=== PATIENT | male | born 1965 | race Caucasian/White ===

== ENCOUNTER 2021-04-24 06:24 | Emergency (ER) | payer MEDICARE, MEDICAID, SELFPAY ==
--- NOTE | ~2021-04-24 | CT_ITS ---
EXAMINATION: CT ABDOMEN AND PELVIS WITH CONTRAST CLINICAL INFORMATION: 55-year-old male with right-sided abdominal/flank pain for 3 days. COMPARISON: CT abdomen pelvis June 28, 2013 TECHNIQUE: Multidetector volumetric images were obtained from the superior aspect of the liver through the pubic symphysis following administration 85 mL of Omnipaque 350 intravenous contrast. Sagittal and coronal reformatted images were obtained on the technologist's workstation. This CT examination was performed using dose optimization techniques as appropriate, variously including the following: *Automated exposure control *Adjustment of mA and/or kV according to patient size (this includes techniques or standardized protocols for targeted exams where dose is matched to indication/reason for exam; i.e. extremities or head) *Use of iterative reconstruction technique DLP: 678 mGy-cm FINDINGS: Visualized lung bases demonstrate mild dependent atelectasis. The liver demonstrates normal size, contour and attenuation. The gallbladder is normal in appearance. The pancreas, spleen and adrenal glands are unremarkable. Symmetrically enhancing kidneys. No hydronephrosis of either kidney. 1.3 cm right midpole cyst. A few other sub-5 mm renal hypodensities bilaterally are too small to accurately characterize. The stomach is decompressed. Normal caliber loops of small and large bowel. Unremarkable anastomotic suture line within the sigmoid colon. Mild colonic diverticulosis without CT evidence to suggest active diverticulitis. Normal caliber abdominal aorta. No retroperitoneal lymphadenopathy. The bladder is normal in appearance. The prostate gland is not enlarged. No gross free pelvic fluid. No inguinal lymphadenopathy. Mild degenerative changes of the spine. CT/CT abdomen pelvis w con IMPRESSION: 1. Mild colonic diverticulosis without CT evidence to suggest active diverticulitis. 2. Stable postsurgical changes of the sigmoid colon. 3. Small right renal cyst.
[2021-04-24 06:59] VITALS: BP 148/89; PULSE 61; RESP 17; TEMP 36.6; O2SAT 97; BMI 31.6
[2021-04-24 07:23] VITALS: BP 146/71; PULSE 60; RESP 16; O2SAT 98
[2021-04-24 08:00] LABS: Hemoglobin 13.9 g/dl (14.0-18.0); Imm Gran Abs Auto 0.01 X10*3/uL (0.00-0.03); Imm Gran Pct Auto 0.2 % (0.0-0.4); MANUAL DIFF FLAG SCAN; PLT CLUMP 1; Red Cell Distribution Width 12.2 % (11.0-16.0); SCAN SMEAR FLAG 1
[2021-04-24 08:02] LABS: Basophils Percent Auto 0.3 % (0-2); Eosinophils Absolute Auto 0.2 X10*3/uL (0.0-0.4); Eosinophils Percent Auto 3.5 % (0-4); Hematocrit 40.5 % (42-52); Lymphocytes Absolute Auto 1.7 X10*3/uL (1.2-4.9); Lymphocytes Percent Auto 27.8 % (20-40); Mean Corpuscular HGB Conc 34.3 g/dl (31.0-36.0); Mean Corpuscular Hemoglobin 30.8 pg (27.0-33.0); Mean Corpuscular Volume 89.8 fL (80-98); Monocytes Absolute Auto 0.4 X10*3/uL (0.1-1.2); Monocytes Percent Auto 6.5 % (2-11); Neutrophils Absolute Auto 3.7 X10*3/uL (2.0-8.3); Neutrophils Percent Auto 61.7 % (45-73); Red Blood Count 4.51 X10*6/uL (4.60-5.80)
[2021-04-24] MEDS: 0.9 % Sodium Chloride 1,000 ML 999 ML IV (08:10)
[2021-04-24 08:16] LABS: Glucose Urine UA NEG (NEG); Leukocyte Esterase Urine NEG (NEG); Nitrite Urine NEG (NEG); Specific Gravity - Urine 1.025 (1.005-1.025); Urine Blood NEG (NEG); Urine Ketones NEG (NEG); Urine Protein NEG (NEG-TRACE)
[2021-04-24 08:19] LABS: Platelet Count 159 X10*3/uL (160-400); SLIDE REVIEW VERIFIED
[2021-04-24 08:20] LABS: Appearance Urine CLEAR; Color Urine YELLOW
[2021-04-24] MEDS: Ketorolac Tromethamine 30 MG/ML VIAL IVPUSH (08:39)
[2021-04-24 08:56] LABS: COVID-19 Test Negative (Negative); IDNOW Serial# 9DD0AD1C
[2021-04-24 09:15] LABS: Alanine Aminotransferase 27 U/L (0-40); Albumin Level 3.9 g/dL (3.5-5.0); Alkaline Phosphatase 50 U/L (39-117); Anion Gap 14 (12-20); Aspartate Amino Transferase 22 U/L (5-37); Bilirubin Direct 0.2 mg/dL (0.0-0.5); Bilirubin Total 0.5 mg/dL (0.0-1.0); Blood Urea Nitrogen 16 mg/dL (9-16); Calcium 8.4 mg/dL (8.4-10.2); Carbon Dioxide 19 mmol/L (22-29); Chloride 111 mmol/L (96-108); Creatinine Clr Calc Pharmacy 108.5; Estimated Glomerular Filt Rate > 60; Glucose Random 111 mg/dL (60-115); Lipase 18 U/L (8-78); Magnesium 2.2 mg/dL (1.6-2.6); Potassium 4.5 mmol/L (3.3-5.1); Sodium 139 mmol/L (135-145); Total Protein 6.9 g/dL (6.5-8.0)
[2021-04-24 09:43] VITALS: BP 125/61; PULSE 66; RESP 16; O2SAT 97
--- NOTE | 2021-04-24 09:45 | ED.ABDPAIN ---
HPI - Abdominal Pain General Chief Complaint: Abdominal Pain Stated Complaint: ABD pain Time Seen by Provider: 04/24/21 08:22 Source: patient and family Mode of arrival: ambulatory Limitations: no limitations History of Present Illness HPI narrative: 55-year-old male with a past medical history of diverticulitis with history of sigmoid resection, colonic polyps, BPH, hypertension, asthma, anxiety, depression and restless leg syndrome presenting to the ED with complaints of right upper quadrant/ right flank pain/ right lower quadrant abdominal pain for the past 3 days worse today. denies any fevers, nausea /vomiting, chest pain, shortness of breath, cough, back pain, dysuria, hematuria, abnormal penile discharge, diarrhea, constipation, Black or bloody stools or any other symptoms complaints or concerns at this time. MD elicited complaint: abdominal pain Pertinent past history: diverticulitis Onset (ago): day(s) ( 3 days worse today) Pain Consistency: constant Location: RUQ, RLQ and R flank Severity: moderate Quality: burning Radiation: none Migration to: no migration Exacerbating factors: nothing Relieving factors: nothing Associated symptoms: denies other symptoms Related Data Previous Rx's Medication Instructions Recorded amoxicillin-pot clavulanate 1 tab PO BID 10 Days #20 tab 04/24/21 [Augmentin] Allergies Allergy/AdvReac Type Severity Reaction Status Date / Time banana [Banana] Allergy Mild ITCHING Verified 04/24/21 08:11 peach [[place]] Allergy Mild ITCHING Verified 04/24/21 08:11 strawberry [[place]] Allergy Mild ITCHING Verified 04/24/21 08:11 apple [Apple] Allergy Unknown ITCHING Verified 04/24/21 08:11 jeffers Allergy Unknown ITCHING Verified 04/24/21 08:11 pollen extracts [POLLEN] Allergy Unknown RED ITCHY Verified 04/24/21 08:11 EYES tomato [TOMATO] Allergy Unknown ITCHING Verified 04/24/21 08:11 bananas Allergy Unknown itchy Uncoded 04/24/21 08:11 throat cherries Allergy Unknown itchy Uncoded 04/24/21 08:11 throat environmental Allergy Unknown Unknown Uncoded 04/24/21 08:11 strawberries Allergy Unknown itchy Uncoded 04/24/21 08:11 throat tomatoes Allergy Unknown itchy Uncoded 04/24/21 08:11 throat Review of Systems Review of Systems Constitutional : No Weight loss, No Fever, No Chills, No Night Sweats, No Fatigue, NoMalaise ENT/Mouth: No ear pain, No sore throat, No Difficulty swallowing Cardiovascular : No Chest Pain, No SOB, No Dyspnea on Exertion, No Orthopnea, NoEdema, No Palpitations Respiratory : No Cough, No Sputum, No Wheezing, No Dyspnea Gastrointestinal : positive abdominal pain, No Nausea, No Vomiting, No Diarrhea, No blood streaked emesis, No coffee-ground emesis, No gross hematemesis, No blood streak stool, No gross hematochezia, No Melena Genitourinary : No irregular bleeding, No Dysuria, No Urinary Frequency, No Hematuria,No Urinary Incontinence, No Urgency, No Flank Pain Musculoskeletal : No joint pain, No Myalgias, No Joint Swelling Skin : No Skin Lesions, No rash Neuro : No Weakness, No Numbness, No Paresthesias, No Loss of Consciousness, NoDizziness, No Headache Psych : No Social Issues, Heme/Lymph: No Bruising, No Bleeding,No Lymphadenopathy Endocrine : No Polyuria, No Polydipsia, No Temperature Intolerance Yes all other systems are reviewed and are negative Physical Exam Vital Signs: Vital Signs: Last Vital Signs Temp 97.9 F 04/24/21 06:59 Pulse 66 04/24/21 09:43 Resp 16 04/24/21 09:43 BP 125/61 04/24/21 09:43 Pulse Ox 97 04/24/21 09:43 Body Mass Index 31.6 vital signs have been reviewed as normal and appeared to be correct. Blood pressure hypertensive 148/89. Heart rate normal. Respiration rate normal. Temperature normal. Oxygen saturation normal. Appearance: Alert. Oriented X3. No acute distress. Head: Normal external exam. Normocephalic. Eyes: PERRLA. EOMI. Conjunctiva and sclera normal. Eyelids normal. ENT: Pharynx normal. Uvula midline. Moist mucous membranes. Neck: Normal inspection. Neck supple. FROM. No adenopathy. No meningeal signs. CVS: Normal heart rate and rhythm. Heart sound normal. No murmurs noted. Pulses normal throughout. Respiratory: No respiratory distress. Painless inspiration. Breath sounds normal. No wheezes/rales/rhonchi noted. Chest nontender. No accessory muscle usage noted or decreased air movement noted. Abdomen: Soft and mild tenderness to palpation to right upper quadrant/ right flank /right lower quadrant. Nondistended. No guarding. No rigidity. Bowel sounds normal in all 4 quadrants. No distention noted. No organomegaly noted. No visible injury noted. No rebound tenderness. Negative Rovsing sign. Negative obturator's sign. Negative psoas sign. Negative Brown sign. Back: No CVA tenderness. Full range of motion noted. Skin: Skin warm and dry. Normal skin color. Normal skin turgor. No rashes/lesions/lacerations noted. Extremities: Extremities exhibit normal range of motion. Extremities nontender. Neuro: Oriented X 3. No motor deficit. No sensory deficit. Reflexes normal. Normal steady gait. Course Course Course Narrative: 8:25am - 47-year-old male with a past medical history of asthma, migraine headaches, anxiety disorder and kidney stones presenting to the ED with complaints of nasal congestion, runny nose, sore throat and productive cough with white-colored sputum for the past 2 days worse today. Plan: Labs, COVID swab, UA, CT scan abdomen pelvis with IV contrast provide a L of IV fluids and 30 mg of IV Toradol then re-evaluate. Reevaluation(s) Reevaluation #1: - labs return and patient mild anemia otherwise all other labs are within normal limits. UA within normal limits no evidence of UTI. COVID negative. CT scan abdomen and pelvis revealed mild colonic diverticulosis without CT evidence to suggest active diverticulitis. Also noted small right renal cyst. Normal appearing appendix. Therefore will DC home with antibiotics and symptomatic treatment instructions to follow-up with optometric technologist. Patient understands agrees with this plan. Time: 10:57 MDM - Abdominal Pain Medical Records Attestation: I reviewed the patient's medical records. Lab Data Attestation: I reviewed the patient's lab results. Result diagrams: 04/24/21 07:54 04/24/21 08:35 Labs: Lab Results 04/24/21 04/24/21 04/24/21 Range/Units 07:54 08:11 08:32 WBC 6.0 (4.8-10.8) X10*3/uL RBC 4.51 L (4.60-5.80) X10*6/uL Hgb 13.9 L (14.0-18.0) g/dl Hct 40.5 L (42-52) % MCV 89.8 (80-98) fL MCH 30.8 (27.0-33.0) pg MCHC 34.3 (31.0-36.0) g/dl RDW 12.2 (11.0-16.0) % Plt Count 159 L (160-400) X10*3/uL MPV Not Reportable Immature Gran % (Auto) 0.2 (0.0-0.4) % Neut % (Auto) 61.7 (45-73) % Lymph % (Auto) 27.8 (20-40) % [place] % (Auto) 6.5 (2-11) % Eos % (Auto) 3.5 (0-4) % Baso % (Auto) 0.3 (0-2) % Lymph # (Auto) 1.7 (1.2-4.9) X10*3/uL [place] # (Auto) 0.4 (0.1-1.2) X10*3/uL Eos # (Auto) 0.2 (0.0-0.4) X10*3/uL Baso # (Auto) 0.0 (0.0-0.2) X10*3/uL Abs Immat Gran (auto) 0.01 (0.00-0.03) X10*3/uL Absolute Neuts (auto) 3.7 (2.0-8.3) X10*3/uL Absolute Nucleated RBC 0.000 (0.0-0.012) X10*3/uL Nucleated RBC % (auto) 0.0 (0.0-0.2) /100WBC Smear Tech's Comments VERIFIED Sodium (135-145) mmol/L Potassium (3.3-5.1) mmol/L Chloride (96-108) mmol/L Carbon Dioxide (22-29) mmol/L Anion Gap (12-20) BUN (9-16) mg/dL Creatinine (0.5-1.4) mg/dL Estim Creat Clear Calc Estimated GFR Random Glucose (60-115) mg/dL Calcium (8.4-10.2) mg/dL Magnesium (1.6-2.6) mg/dL Total Bilirubin (0.0-1.0) mg/dL Direct Bilirubin (0.0-0.5) mg/dL AST (5-37) U/L ALT (0-40) U/L Alkaline Phosphatase (39-117) U/L Total Protein (6.5-8.0) g/dL Albumin (3.5-5.0) g/dL Lipase (8-78) U/L Urine Color YELLOW Urine Appearance CLEAR Urine pH 6.0 (5.0-8.0) Ur Specific [place] 1.025 (1.005-1.025) Urine Protein NEG (NEG-TRACE) MG/DL Urine Glucose (UA) NEG (NEG) MG/DL Urine Ketones NEG (NEG) MG/DL Urine Blood NEG (NEG) Urine Nitrite NEG (NEG) Ur Leukocyte Esterase NEG (NEG) COVID-19 (ACACIA) Negative (Negative) COVID-19 Clin Com See Note 04/24/21 Range/Units 08:35 WBC (4.8-10.8) X10*3/uL RBC (4.60-5.80) X10*6/uL Hgb (14.0-18.0) g/dl Hct (42-52) % MCV (80-98) fL MCH (27.0-33.0) pg MCHC (31.0-36.0) g/dl RDW (11.0-16.0) % Plt Count (160-400) X10*3/uL MPV Immature Gran % (Auto) (0.0-0.4) % Neut % (Auto) (45-73) % Lymph % (Auto) (20-40) % [place] % (Auto) (2-11) % Eos % (Auto) (0-4) % Baso % (Auto) (0-2) % Lymph # (Auto) (1.2-4.9) X10*3/uL [place] # (Auto) (0.1-1.2) X10*3/uL Eos # (Auto) (0.0-0.4) X10*3/uL Baso # (Auto) (0.0-0.2) X10*3/uL Abs Immat Gran (auto) (0.00-0.03) X10*3/uL Absolute Neuts (auto) (2.0-8.3) X10*3/uL Absolute Nucleated RBC (0.0-0.012) X10*3/uL Nucleated RBC % (auto) (0.0-0.2) /100WBC Smear Tech's Comments Sodium 139 (135-145) mmol/L Potassium 4.5 (3.3-5.1) mmol/L Chloride 111 H (96-108) mmol/L Carbon Dioxide 19 L (22-29) mmol/L Anion Gap 14 (12-20) BUN 16 (9-16) mg/dL Creatinine 0.82 (0.5-1.4) mg/dL Estim Creat Clear Calc 108.5 Estimated GFR > 60 Random Glucose 111 (60-115) mg/dL Calcium 8.4 (8.4-10.2) mg/dL Magnesium 2.2 (1.6-2.6) mg/dL Total Bilirubin 0.5 (0.0-1.0) mg/dL Direct Bilirubin 0.2 (0.0-0.5) mg/dL AST 22 (5-37) U/L ALT 27 (0-40) U/L Alkaline Phosphatase 50 (39-117) U/L Total Protein 6.9 (6.5-8.0) g/dL Albumin 3.9 (3.5-5.0) g/dL Lipase 18 (8-78) U/L Urine Color Urine Appearance Urine pH (5.0-8.0) Ur Specific [place] (1.005-1.025) Urine Protein (NEG-TRACE) MG/DL Urine Glucose (UA) (NEG) MG/DL Urine Ketones (NEG) MG/DL Urine Blood (NEG) Urine Nitrite (NEG) Ur Leukocyte Esterase (NEG) COVID-19 (ACACIA) (Negative) COVID-19 Clin Com Imaging Data CT scan abdomen pelvis with IV contrast: Attestation: I personally reviewed and interpreted this imaging study as follows: Radiologist's impression: FINDINGS: Visualized lung bases demonstrate mild dependent atelectasis. The liver demonstrates normal size, contour and attenuation. The gallbladder is normal in appearance. The pancreas, spleen and adrenal glands are unremarkable. Symmetrically enhancing kidneys. No hydronephrosis of either kidney. 1.3 cm right midpole cyst. A few other sub-5 mm renal hypodensities bilaterally are too small to accurately characterize. The stomach is decompressed. Normal caliber loops of small and large bowel. Unremarkable anastomotic suture line within the sigmoid colon. Mild colonic diverticulosis without CT evidence to suggest active diverticulitis. Normal caliber abdominal aorta. No retroperitoneal lymphadenopathy. The bladder is normal in appearance. The prostate gland is not enlarged. No gross free pelvic fluid. No inguinal lymphadenopathy. Mild degenerative changes of the spine. CT/CT abdomen pelvis w con IMPRESSION: 1. Mild colonic diverticulosis without CT evidence to suggest active diverticulitis. 2. Stable postsurgical changes of the sigmoid colon. 3. Small right renal cyst. The appendix is normal in appearance. Addendum Dictated By:INÉS HALL MDAddendum Signed By:<Electronically signed by INÉS HALL MD in [place]> Discharge Plan Discharge Clinical Impression: Diverticulosis, Benign cyst of right kidney Patient Disposition: Home, Self-Care Instructions: Diverticulosis (ED), Kidney Cyst (ED) Prescriptions: New amoxicillin-pot clavulanate [Augmentin] 875-125 mg tablet 1 tab PO BID 10 Days Qty: 20 RF: 0 Referrals: Boris Erazo MD [Physician] - 2 days Aretha Cabrera MD [Primary Care Provider] - 2 days Young Azar MD [Physician] - 2 days ( renal cyst) Print Language: [place] [facility] Past Medical History Attestation statement: The following information was validated with the patient. Medical History (Updated 04/24/21 @ 10:59 by MIGUEL ANGEL Ray) Colitis Hypertension Surgical History (Updated 04/24/21 @ 09:48 by MIGUEL ANGEL Ray) H/O colonoscopy with polypectomy History of colon surgery History of prostate surgery Previous back surgery Social History Social History Patient Tobacco Use Status: Never used Tobacco Use of substances other than those prescribed or required for medical reasons: No Advance Directives: No Advance Directives Information Provided: No
[2021-04-24] MEDS: iohexoL 350 MG/ML 100 ML INFUS..BTL IV (09:57)
--- NOTE | 2021-04-24 10:20 | PC.NURSE ---
pt reporting significant improvement in pain. continues to deny n/v/d. vs wnl. waiting on ct results.
== END 2021-04-24 11:19 | disposition home or self-care (01) ==
PROVIDERS: Physician Assistant Medical; Emergency Provider Emergency Medicine Emergency Medical Services; PCP Student in an Organized Health Care Education/Training Program
DX: K57.30 Diverticulosis of large intestine without perforation or abscess without bleeding (principal); N28.1 Cyst of kidney, acquired; D64.9 Anemia, unspecified; I10 Essential (primary) hypertension; R05 Cough; Z20.822 Contact with and (suspected) exposure to COVID-19
CPT/HCPCS: 36415; 74177; 80048; 80076; 81003; 83690; 83735; 85025; 87635; 96361; 96374; 99284; 99285; J1885; Q9967

== ENCOUNTER 2021-06-17 12:18 | Outpatient (REF) | payer MEDICARE, MEDICAID, SELFPAY ==
--- NOTE | ~2021-06-17 | XR_ITS ---
EXAMINATION: CERVICAL SPINE 3 VIEWS CLINICAL INFORMATION: Dorsalgia. COMPARISON: Radiographs dated 10/10/2009. TECHNIQUE: Frontal, and odontoid, bilateral oblique and lateral views of the cervical spine are obtained. FINDINGS: Vertebral body heights and alignment are normal. There is very mild disc space narrowing at C5-C6 and C6-C7. No acute fracture or spondylolisthesis is seen. There is multi-level spondylosis, most pronounced at C5-C6 and C6-C7. The posterior elements are intact. There is mild bilateral foraminal narrowing at C5-C6, and mild left neural foraminal narrowing is seen at C6-C7. The dens is intact. There is no prevertebral soft tissue swelling. XR/XR cervical spine min 6V IMPRESSION: 1. There is mild degenerative disc disease at C5-C6 and C6-C7. 2. There is multi-level cervical spondylosis, most pronounced at C5-C6 and C6-C7. 3. There is mild bilateral foraminal narrowing at C5-C6, and mild left neural foraminal narrowing is seen at C6-C7.
--- NOTE | ~2021-06-17 | XR_ITS ---
EXAMINATION: XR THORACIC SPINE CLINICAL INFORMATION: Back pain. COMPARISON: Radiographs dated 10/10/2009. TECHNIQUE: Frontal, lateral and swimmer's views of the thoracic spine were obtained. FINDINGS: Vertebral body heights are normal. There is a slight thoracic dextroscoliosis, which may be positional. No acute fracture or spondylolisthesis is seen. The disc spaces are well-maintained. There is multi-level moderate mid to lower thoracic spondylosis. The posterior elements are intact. The soft tissue planes are unremarkable. XR/XR thoracic spine 3V IMPRESSION: 1. . No acute fracture or spondylolisthesis is seen. 2. The disc spaces are well-maintained. 3. There is multi-level moderate mid to lower thoracic spondylosis. 4. A slight thoracic dextroscoliosis is seen, possibly positional.
== END 2021-06-17 12:19 | disposition home or self-care (01) ==
LOC: HO.XRAY 12:18
PROVIDERS: PCP Student in an Organized Health Care Education/Training Program; Visit Provider Emergency Medicine
DX: M54.2 Cervicalgia (principal); M54.9 Dorsalgia, unspecified
CPT/HCPCS: 72052; 72072

== ENCOUNTER 2021-12-30 17:45 | Emergency (ER) | payer MEDICARE, MEDICAID, SELFPAY ==
--- NOTE | ~2021-12-30 | CT_ITS ---
EXAMINATION: CT ABDOMEN AND PELVIS WITH CONTRAST CLINICAL INFORMATION: Diffuse abdominal pain most marked in the left lower quadrant COMPARISON: CT abdomen pelvis 04/24/[address] abdomen pelvis 02/12/2013 (report only) TECHNIQUE: Multidetector volumetric images were obtained from the superior aspect of the liver through the pubic symphysis following administration 85 mL of Omnipaque 350 intravenous contrast. Sagittal and coronal reformatted images were obtained on the technologist's workstation. Oral contrast: No This CT examination was performed using dose optimization techniques as appropriate, variously including the following: *Automated exposure control *Adjustment of mA and/or kV according to patient size (this includes techniques or standardized protocols for targeted exams where dose is matched to indication/reason for exam; i.e. extremities or head) *Use of iterative reconstruction technique DLP: 644 mGy-cm FINDINGS: LUNG BASES: The visualized lung bases are unremarkable. LIVER, GALLBLADDER, AND BILIARY TREE: The liver is normal in size, shape, and attenuation. No focal hepatic lesion or biliary ductal dilatation is present. The gallbladder is unremarkable with no evidence of radiopaque gallstones, gallbladder wall thickening, or obvious pericholecystic inflammatory changes. PANCREAS: Unremarkable. SPLEEN: Unremarkable. ADRENAL GLANDS: Unremarkable. KIDNEYS AND URETERS: The kidneys are normal in size, shape, and attenuation. A 1.5 cm right parapelvic cyst is present. This needs no further imaging or follow-up. No solid renal masses are seen. No hydronephrosis, hydroureter, or calculi seen. No perinephric stranding. BLADDER: Unremarkable. GASTROINTESTINAL TRACT: A rectal anastomosis is seen without obstruction. Severe colonic diverticulitis was noted at this location prior on the 2012 study and this is probably the segment that was resected. Scattered colonic diverticula are present without evidence of diverticulitis at this time. The small and large bowel are otherwise unremarkable. The appendix is unremarkable. ABDOMINAL WALL: No significant hernia is appreciated. LYMPH NODES: No retroperitoneal lymphadenopathy. VASCULAR: Unremarkable. PELVIC VISCERA: Prostate and seminal vesicles are unremarkable. OSSEOUS STRUCTURES: Unremarkable. CT/CT abdomen pelvis w con IMPRESSION: No significant abnormality. Again seen is colonic diverticulosis without diverticulitis and a widely patent rectal anastomosis. Fleischner guidelines were followed.
[2021-12-30 18:26] VITALS: BP 142/80; PULSE 59; RESP 18; TEMP 37.1; O2SAT 98; BMI 31.8
[2021-12-30 20:28] LABS: MANUAL DIFF FLAG NO
[2021-12-30 20:29] LABS: Basophils Percent Auto 0.3 % (0-2); Eosinophils Absolute Auto 0.1 X10*3/uL (0.0-0.4); Eosinophils Percent Auto 1.3 % (0-4); Hematocrit 42.7 % (42.0-52.0); Hemoglobin 14.9 g/dl (14.0-18.0); Imm Gran Abs Auto 0.01 X10*3/uL (0.00-0.03); Imm Gran Pct Auto 0.2 % (0.0-0.4); Lymphocytes Absolute Auto 1.8 X10*3/uL (1.2-4.9); Lymphocytes Percent Auto 27.5 % (20-40); Mean Corpuscular HGB Conc 34.9 g/dl (31.0-36.0); Mean Corpuscular Hemoglobin 30.5 pg (27.0-33.0); Mean Corpuscular Volume 87.3 fL (80.0-98.0); Mean Platelet Volume 9.4 fL (9.4-12.4); Monocytes Absolute Auto 0.8 X10*3/uL (0.1-1.2); Monocytes Percent Auto 12.1 % (2-11); Neutrophils Absolute Auto 3.7 x10*3/uL (2.0-8.3); Neutrophils Percent Auto 58.6 % (45-73); Platelet Count 242 X10*3/uL (160-400); Red Blood Count 4.89 X10*6/uL (4.60-5.80); Red Cell Distribution Width 12.1 % (11.0-16.0); White Blood Count 6.4 X10*3/uL (4.8-10.8)
[2021-12-30 20:51] LABS: Alanine Aminotransferase 24 U/L (0-40); Albumin Level 4.4 g/dL (3.5-5.0); Alkaline Phosphatase 53 U/L (39-117); Anion Gap 17 (12-20); Aspartate Amino Transferase 23 U/L (5-37); Bilirubin Total 0.7 mg/dL (0.0-1.0); Blood Urea Nitrogen 14 mg/dL (9-16); Calcium 9.1 mg/dL (8.4-10.2); Carbon Dioxide 21 mmol/L (22-29); Chloride 102 mmol/L (96-108); Creatinine Clr Calc Pharmacy 101.5; Estimated Glomerular Filt Rate > 60; Glucose Random 108 mg/dL (60-115); Potassium 3.7 mmol/L (3.3-5.1); Sodium 136 mmol/L (135-145); Total Protein 7.6 g/dL (6.5-8.0)
[2021-12-30 21:42] VITALS: BP 139/82; PULSE 60; RESP 18; TEMP 36.9; O2SAT 98
[2021-12-30] MEDS: Ketorolac Tromethamine 15 MG/ML VIAL 30 MG IVPUSH (22:45)
[2021-12-30 23:13] LABS: Lipase 20 U/L (8-78)
[2021-12-30] MEDS: iohexoL 350 MG/ML 100 ML INFUS..BTL 85 ML IV (23:25)
--- NOTE | 2021-12-30 23:32 | ED_ITS ---
HPI - Abdominal Pain General Chief Complaint: Abdominal Pain Stated Complaint: abd pain Time Seen by Provider: 12/30/21 21:56 Source: patient Mode of arrival: ambulatory Limitations: no limitations History of Present Illness HPI narrative: This is a 56-year-old male past medical history diverticulitis, hypertension, restless legs syndrome, anxiety, depression presenting to the emergency department with complaints of diffuse abdominal pain with diarrhea x4 days. Patient tells me that the abdominal pain is severe in nature, crampy, at times stabbing. He tells me that the pain is throughout however worse in the left upper/lower quadrant. Patient tells me this is what it felt like when he had diverticulitis. He rates it a /10. He also reports associated chills. He tells me he has not been able to eat or drink as much as usual and when he does eat and drink is been all clear liquids. He denies fevers, chest pain, shortness of breath, nausea, vomiting, dizziness, headache. Patient denies recent sick contacts. MD elicited complaint: abdominal pain Pertinent past history: none Onset (ago): day(s) (4) Pain Consistency: constant Location: diffuse Severity: severe Pain scale (0-10): 10 Quality: cramping and stabbing Radiation: none Migration to: no migration Exacerbating factors: nothing Relieving factors: nothing Associated symptoms: denies other symptoms Related Data Previous Rx's Medication Instructions Recorded amoxicillin 875 mg-potassium 1 tab PO BID 10 Days #20 tab 04/24/21 clavulanate 125 mg tablet (Augmentin) ondansetron 4 mg disintegrating 4 mg PO ONCE PRN #10 tab 12/31/21 tablet Allergies Allergy/AdvReac Type Severity Reaction Status Date / Time banana [Banana] Allergy Mild ITCHING Verified 04/24/21 08:11 peach [[place]] Allergy Mild ITCHING Verified 04/24/21 08:11 strawberry [[place]] Allergy Mild ITCHING Verified 04/24/21 08:11 apple [Apple] Allergy Unknown ITCHING Verified 04/24/21 08:11 jeffers Allergy Unknown ITCHING Verified 04/24/21 08:11 pollen extracts [POLLEN] Allergy Unknown RED ITCHY Verified 04/24/21 08:11 EYES tomato [TOMATO] Allergy Unknown ITCHING Verified 04/24/21 08:11 avocado Allergy Itching Verified 12/30/21 18:26 bananas Allergy Unknown itchy Uncoded 04/24/21 08:11 throat cherries Allergy Unknown itchy Uncoded 04/24/21 08:11 throat environmental Allergy Unknown Unknown Uncoded 04/24/21 08:11 strawberries Allergy Unknown itchy Uncoded 04/24/21 08:11 throat tomatoes Allergy Unknown itchy Uncoded 04/24/21 08:11 throat Review of Systems Review of Systems Constitutional : No Weight loss, No Fever, No Chills, No Fatigue, No Malaise ENT/Mouth : No sore throat, No Rhinorrhea Eyes: No Eye Pain, No Swelling, No Redness Cardiovascular : No Chest Pain, No SOB, No Dyspnea on Exertion, No Orthopnea, No Edema, No Palpitations Respiratory : No Cough, No Sputum, No Wheezing Gastrointestinal : No Nausea, No Vomiting, + Diarrhea, No Constipation, + abdominal Pain, No Hematochezia, No Melena Genitourinary : No Dysuria, No Urinary Frequency, No Hematuria, Musculoskeletal : No joint pain, No Myalgias, No Joint Swelling Skin : No Skin Lesions, No rash Neuro : No Weakness, No Numbness, No Dizziness, No Headache Psych : No Anxiety/Panic, No Depression All other systems reviewed and are negative Yes all other systems are reviewed and are negative [facility] Past Medical History Attestation statement: The following information was validated with the patient. Source: old records reviewed and nursing notes reviewed Medical History Colitis Hypertension Surgical History H/O colonoscopy with polypectomy History of colon surgery History of prostate surgery Previous back surgery Social History Social History Patient Tobacco Use Status: Never used Tobacco Advance Directives: No Advance Directives Information Provided: No Physical Exam ED Vital Signs: Vital Signs - 24 hr 12/30/21 18:26 12/30/21 21:42 12/31/21 00:43 Temperature 98.8 F 98.5 F 98.0 F Pulse Rate 59 60 55 Respiratory Rate 18 18 16 Blood Pressure 142/80 H 139/82 100/59 L Pulse Oximetry 98 98 98 BMI result Body Mass Index 31.8 VSS Appearance: Alert.? Oriented X3.? No acute distress.? Head: Normocephalic, atraumatic, no step-offs or deformities Eyes: Pupils equal, round and reactive to light.? ENT: Pharynx normal.? Neck: Normal inspection.? Neck supple.? CVS: Normal heart rate and rhythm.? Pulses normal.? Respiratory: No respiratory distress.? Breath sounds normal.? Abdomen: Soft and + diffusely tender on palpation normoactive bowel sounds. Slightly distended. Skin: Skin warm and dry.? Normal skin color.? Normal skin turgor.? Extremities: No lower extremity edema.? No calf ttp. 5/5 strength to bilateral upper and lower extremities Back: No midline tenderness, no C-spine tenderness, full range of motion, no CVA tenderness bilaterally Neuro: Oriented X 3.? No motor deficit.? No sensory deficit. CN 2-12 intact Course Reevaluation(s) Reevaluation #1: CBC within normal limits. Chemistry with no acute electrolyte abnormalities. Lipase normal. UA pending. Abdominal CT pending. Time: 23:38 Reevaluation #2: CT of the abdomen and pelvis with no acute findings. At this time I feel comfortable discharge home this is likely viral gastroenteritis. Advised to return with new or worsening symptoms and to follow-up with GI. Time: 01:30 MDM - Abdominal Pain MDM Narrative Medical decision making narrative: 2229 56 yo m pmhx diverticulitis, hypertension, restless legs syndrome, anxiety, depression presents with severe abdominal pain, diarrhea and chills X4 days. PE with soft, slightly distended abdomen with normoactive bowel sounds. Diffusely tender upon palpation. Lungs clear. Regular rate and rhythm. Neuro nonfocal. Plan labs, imaging. UA. Medical Records Attestation: I reviewed the patient's medical records. Lab Data Attestation: I reviewed the patient's lab results. Result diagrams: 12/30/21 20:23 12/30/21 20:23 Labs: Lab Results 12/30/21 12/30/21 12/31/21 Range/Units : 20:23 00:45 WBC 6.4 (4.8-10.8) X10*3/uL RBC 4.89 (4.60-5.80) X10*6/uL Hgb 14.9 (14.0-18.0) g/dl Hct 42.7 (42.0-52.0) % MCV 87.3 (80.0-98.0) fL MCH 30.5 (27.0-33.0) pg MCHC 34.9 (31.0-36.0) g/dl RDW 12.1 (11.0-16.0) % Plt Count 242 (160-400) X10*3/uL MPV 9.4 (9.4-12.4) fL Immature Gran % (Auto) 0.2 (0.0-0.4) % Neut % (Auto) 58.6 (45-73) % Lymph % (Auto) 27.5 (20-40) % [place] % (Auto) 12.1 H (2-11) % Eos % (Auto) 1.3 (0-4) % Baso % (Auto) 0.3 (0-2) % Lymph # (Auto) 1.8 (1.2-4.9) X10*3/uL [place] # (Auto) 0.8 (0.1-1.2) X10*3/uL Eos # (Auto) 0.1 (0.0-0.4) X10*3/uL Baso # (Auto) 0.0 (0.0-0.2) X10*3/uL Abs Immat Gran (auto) 0.01 (0.00-0.03) X10*3/uL Absolute Neuts (auto) 3.7 (2.0-8.3) x10*3/uL Absolute Nucleated RBC 0.000 (0.0-0.012) X10*3/uL Nucleated RBC % (auto) 0.0 (0.0-0.2) /100WBC Sodium 136 (135-145) mmol/L Potassium 3.7 (3.3-5.1) mmol/L Chloride 102 (96-108) mmol/L Carbon Dioxide 21 L (22-29) mmol/L Anion Gap 17 (12-20) BUN 14 (9-16) mg/dL Creatinine 0.84 (0.5-1.4) mg/dL Estim Creat Clear Calc 101.5 Estimated GFR > 60 Random Glucose 108 (60-115) mg/dL Calcium 9.1 D (8.4-10.2) mg/dL Total Bilirubin 0.7 (0.0-1.0) mg/dL AST 23 (5-37) U/L ALT 24 (0-40) U/L Alkaline Phosphatase 53 (39-117) U/L Total Protein 7.6 (6.5-8.0) g/dL Albumin 4.4 (3.5-5.0) g/dL Lipase 20 (8-78) U/L Urine Color YELLOW Urine Appearance CLEAR Urine pH 5.5 (5.0-8.0) Ur Specific [place] <= 1.005 (1.005-1.025) Urine Protein NEG (NEG-TRACE) MG/DL Urine Glucose (UA) NEG (NEG) MG/DL Urine Ketones NEG (NEG) MG/DL Urine Blood TRACE (NEG) Urine Nitrite NEG (NEG) Ur Leukocyte Esterase NEG (NEG) Urine RBC 0 (0) /HPF Urine WBC 0-2 (0-4) /HPF Ur Squamous Epith Cells TRACE /LPF Urine Bacteria NONE /LPF Critical Care Time Critical Care Time Critical Care Time: No Discharge Plan Discharge Clinical Impression: Gastroenteritis Patient Disposition: Home, Self-Care Instructions: Gastroenteritis (ED) Additional Instructions: Take your medications as prescribed. If you were prescribed antibiotics today, it is important that you take your medication to their entirety, do not skip any doses, do not finish them early. Follow-up with your primary care provider this week. Please follow up with GI doctor this week. Return to the emergency department with new or worsening symptoms. Such as fevers, chills, chest pain, shortness of breath, nausea, vomiting, dizziness, headache, vision changes, lethargy In case of emergency call 911 CT/CT abdomen pelvis w con IMPRESSION: No significant abnormality. Again seen is colonic diverticulosis without diverticulitis and a widely patent rectal anastomosis. Prescriptions: New ondansetron 4 mg tablet,disintegrating 4 mg PO ONCE PRN (Reason: nausea and vomiting) Qty: 10 0RF No Action amoxicillin-pot clavulanate [Augmentin] 875-125 mg tablet 1 tab PO BID 10 Days Qty: 20 0RF Referrals: Blossom Rosa MD [Physician] - 2 days Aretha Cabrera MD [Primary Care Provider] - 2 days Stand Alone Forms: Work/School Release Interventions: ED Discharge Assessment Last Done: 12/31/21 01:22 Discharge Date/Time: 12/31/21 01:22
[2021-12-31] MEDS: Morphine Sulfate 2 MG/ML CARTRIDGE IVPUSH (00:41)
[2021-12-31 00:43] VITALS: BP 100/59; PULSE 55; RESP 16; TEMP 36.7; O2SAT 98
[2021-12-31 01:12] LABS: Appearance Urine CLEAR; Color Urine YELLOW; Glucose Urine UA NEG (NEG); Leukocyte Esterase Urine NEG (NEG); Nitrite Urine NEG (NEG); PH 5.5 (5.0-8.0); Specific Gravity - Urine <= 1.005 (1.005-1.025); UACC Culture Trigger NO; Urine Blood TRACE (NEG); Urine Ketones NEG (NEG); Urine Protein NEG (NEG-TRACE)
[2021-12-31 01:18] LABS: RBC Urine 0 /HPF (0); Squamous Epithelial Cell Urine TRACE /LPF; WBC Urine 0-2 /HPF (0-4)
== END 2021-12-31 01:22 | disposition home or self-care (01) ==
PROVIDERS: Physician Assistant; Emergency Provider Emergency Medicine Emergency Medical Services; PCP Student in an Organized Health Care Education/Training Program
DX: K52.9 Noninfective gastroenteritis and colitis, unspecified (principal); I10 Essential (primary) hypertension
CPT/HCPCS: 36415; 74177; 80053; 81001; 83690; 85025; 96374; 96375; 99284; 99285; J1885; J2270; Q9967

== ENCOUNTER 2022-01-01 05:45 | Emergency (ER) | payer MEDICARE, MEDICAID, SELFPAY ==
[2022-01-01 06:01] VITALS: BP 138/75; PULSE 59; RESP 18; TEMP 36.6; O2SAT 98; BMI 30.8
[2022-01-01 06:08] LABS: MANUAL DIFF FLAG NO
[2022-01-01 06:09] LABS: Basophils Percent Auto 0.6 % (0-2); Eosinophils Absolute Auto 0.2 X10*3/uL (0.0-0.4); Eosinophils Percent Auto 3.2 % (0-4); Hematocrit 41.2 % (42.0-52.0); Hemoglobin 14.4 g/dl (14.0-18.0); Imm Gran Abs Auto 0.01 X10*3/uL (0.00-0.03); Imm Gran Pct Auto 0.2 % (0.0-0.4); Lymphocytes Absolute Auto 2.5 X10*3/uL (1.2-4.9); Lymphocytes Percent Auto 46.3 % (20-40); Mean Corpuscular Hemoglobin 30.1 pg (27.0-33.0); Mean Corpuscular Volume 86.2 fL (80.0-98.0); Mean Platelet Volume 9.4 fL (9.4-12.4); Monocytes Absolute Auto 0.4 X10*3/uL (0.1-1.2); Neutrophils Absolute Auto 2.3 x10*3/uL (2.0-8.3); Neutrophils Percent Auto 42.7 % (45-73); Platelet Count 237 X10*3/uL (160-400); Red Blood Count 4.78 X10*6/uL (4.60-5.80); White Blood Count 5.3 X10*3/uL (4.8-10.8)
[2022-01-01 06:18] VITALS: BP 120/76; PULSE 54; RESP 16; TEMP 36.8; O2SAT 95
[2022-01-01 06:31] LABS: Alanine Aminotransferase 24 U/L (0-40); Albumin Level 4.2 g/dL (3.5-5.0); Alkaline Phosphatase 53 U/L (39-117); Anion Gap 13 (12-20); Aspartate Amino Transferase 22 U/L (5-37); Bilirubin Total 0.6 mg/dL (0.0-1.0); Blood Urea Nitrogen 15 mg/dL (9-16); Calcium 9.2 mg/dL (8.4-10.2); Carbon Dioxide 24 mmol/L (22-29); Chloride 103 mmol/L (96-108); Creatinine Clr Calc Pharmacy 92.4; Estimated Glomerular Filt Rate > 60; Glucose Random 132 mg/dL (60-115); Lipase 26 U/L (8-78); Potassium 3.4 mmol/L (3.3-5.1); Sodium 137 mmol/L (135-145); Total Protein 7.3 g/dL (6.5-8.0)
--- NOTE | 2022-01-01 07:07 | ED.ABDPAIN ---
HPI - Abdominal Pain General Chief Complaint: Abdominal Pain Stated Complaint: stomach pain Time Seen by Provider: 01/01/22 07:07 Source: patient and family (Spouse) Mode of arrival: ambulatory Limitations: no limitations History of Present Illness HPI narrative: 56-year-old male came in for evaluation of abdominal pain and diarrhea. Patient was seen 2 days ago in the emergency department for same complaint, which is upper abdominal pain worsening with food, associated with nonbloody watery diarrhea, pain is constant but wean in wax, patient had unremarkable labs and unremarkable CT of the abdomen and pelvis, patient returned today for same pain, patient describes the pain as mostly epigastric abdominal pain for 6 days now, associated with nonbloody watery diarrhea, no fever or chills. Had a history of diverticulitis and colitis but did not show in his previous CT, patient today has unremarkable labs, Related Data Previous Rx's Medication Instructions Recorded amoxicillin 875 mg-potassium 1 tab PO BID 10 Days #20 tab 04/24/21 clavulanate 125 mg tablet (Augmentin) ondansetron 4 mg disintegrating 4 mg PO ONCE PRN #10 tab 12/31/21 tablet omeprazole magnesium 20 mg 20 mg PO BID #30 tab 01/01/22 tablet,delayed release (Prilosec OTC) Allergies Allergy/AdvReac Type Severity Reaction Status Date / Time banana [Banana] Allergy Mild ITCHING Verified 01/01/22 06:01 peach [[place]] Allergy Mild ITCHING Verified 01/01/22 06:01 strawberry [[place]] Allergy Mild ITCHING Verified 01/01/22 06:01 apple [Apple] Allergy Unknown ITCHING Verified 01/01/22 06:01 jeffers Allergy Unknown ITCHING Verified 01/01/22 06:01 pollen extracts [POLLEN] Allergy Unknown RED ITCHY Verified 01/01/22 06:01 EYES tomato [TOMATO] Allergy Unknown ITCHING Verified 01/01/22 06:01 avocado Allergy Itching Verified 01/01/22 06:01 bananas Allergy Unknown itchy Uncoded 01/01/22 06:01 throat cherries Allergy Unknown itchy Uncoded 01/01/22 06:01 throat environmental Allergy Unknown Unknown Uncoded 01/01/22 06:01 strawberries Allergy Unknown itchy Uncoded 01/01/22 06:01 throat tomatoes Allergy Unknown itchy Uncoded 01/01/22 06:01 throat Review of Systems Review of Systems All other systems are reviewed and are negative Constitutional: Reports as per HPI and Reports no additional constitutional complaints Eyes: Reports as per HPI and Reports no additional eye complaints Reports system reviewed and no additional complaints, except as documented Cardiovascular: Reports as per HPI and Reports no additional cardiovascular complaints Respiratory: Reports as per HPI and Reports no additional respiratory complaints Gastrointestinal: Reports as per HPI and Reports no additional gastrointestinal complaints Genitourinary: Reports no additional female genitourinary complaints Musculoskeletal: Reports no additional musculoskeletal complaints Skin/Breast: Reports system reviewed and no additional complaints, except as docu Psychiatric: Reports no additional psychiatric complaints Endocrine: Reports no additional endocrine complaints Hematologic/Lymphatic: Reports no additional hematologic/lymphatic complaints Allergic/Immunologic: Reports no additional allergic/immunologic complaints Reports system reviewed and no additional complaints, except as documented and Reports Abnormal speech present [facility] Past Medical History Medical History Colitis Hypertension Surgical History H/O colonoscopy with polypectomy History of colon surgery History of prostate surgery Previous back surgery Social History Social History Patient Tobacco Use Status: Never used Tobacco Use of substances other than those prescribed or required for medical reasons: No Advance Directives: No Advance Directives Information Provided: Yes Physical Exam ED Vital Signs: Vital Signs - 24 hr 01/01/22 06:01 01/01/22 06:18 01/01/22 08:15 Temperature 97.8 F 98.2 F Pulse Rate 59 54 50 Respiratory Rate 18 16 16 Blood Pressure 138/75 120/76 118/70 Pulse Oximetry 98 95 97 BMI result Body Mass Index 30.8 Vital signs have been reviewed as appeared to be correct. Blood pressure normal. Heart rate normal. Respiration rate normal. Temperature normal. Oxygen saturation normal. Appearance: Alert. Oriented X3. No acute distress. Head: Normal external exam. Normocephalic. Atraumatic. No [place] signs noted. No raccoon eyes noted Eyes: PERRLA. EOMI. Conjunctiva and sclera normal. Eyelids normal. ENT: TM's Normal. Pharynx normal. Uvula midline. Moist mucous membranes. No trismus noted. No drooling noted. No muffled voice noted. Neck: Normal inspection. Neck supple. FROM. No adenopathy. Thyroid Normal. No meningeal signs. No neck mass noted. CVS: Normal heart rate and rhythm. Heart sound normal. No murmurs noted. Pulses normal throughout. Respiratory: No respiratory distress. Painless inspiration. Breath sounds normal. No wheezes/rales/rhonchi noted. Chest nontender. No accessory muscle usage noted or decreased air movement noted. Abdomen: Soft, diffuse tenderness, no guarding, no rebound tenderness, pain is the mostly in the epigastric area. Bowel sounds normal in all 4 quadrants. No distention noted. No organomegaly noted. No visible injury noted. Back: No CVA tenderness. Full range of motion noted. Skin: Skin warm and dry. Normal skin color. Normal skin turgor. No rashes/lesions/lacerations noted. Extremities: No lower extremity edema. Extremities exhibit normal range of motion. Extremities nontender. Neuro: Oriented X 3. Cranial nerve exam: II-XII are grossly intact No motor deficit. No sensory deficit. Reflexes normal. Course Course Course Narrative: Assessment and plan. 56 years old male multiple ED visits for upper abdominal pain, unremarkable workup in the ED, returned today after 2 days from his previous ED visit for epigastric pain that is food related, physical exam is consistent with possible gastritis, patient has an appointment with his net lead architect, patient now feels better able to tolerate p.o. intake. Start the patient on Prilosec and keep the appointment with his net lead architect for possible upper endoscopy, patient was instructed to take small but more frequent meals, stay away from fried/greasy/spicy food. MDM - Abdominal Pain Medical Records Attestation: I reviewed the patient's medical records. Lab Data Attestation: I reviewed the patient's lab results. Result diagrams: 01/01/22 06:04 01/01/22 06:04 Labs: Lab Results 01/01/22 01/01/22 01/01/22 Range/Units 06:04 06:04 08:04 WBC 5.3 (4.8-10.8) X10*3/uL RBC 4.78 (4.60-5.80) X10*6/uL Hgb 14.4 (14.0-18.0) g/dl Hct 41.2 L (42.0-52.0) % MCV 86.2 (80.0-98.0) fL MCH 30.1 (27.0-33.0) pg MCHC 35.0 (31.0-36.0) g/dl RDW 12.0 (11.0-16.0) % Plt Count 237 (160-400) X10*3/uL MPV 9.4 (9.4-12.4) fL Immature Gran % (Auto) 0.2 (0.0-0.4) % Neut % (Auto) 42.7 L (45-73) % Lymph % (Auto) 46.3 H (20-40) % [place] % (Auto) 7.0 (2-11) % Eos % (Auto) 3.2 (0-4) % Baso % (Auto) 0.6 (0-2) % Lymph # (Auto) 2.5 (1.2-4.9) X10*3/uL [place] # (Auto) 0.4 (0.1-1.2) X10*3/uL Eos # (Auto) 0.2 (0.0-0.4) X10*3/uL Baso # (Auto) 0.0 (0.0-0.2) X10*3/uL Abs Immat Gran (auto) 0.01 (0.00-0.03) X10*3/uL Absolute Neuts (auto) 2.3 (2.0-8.3) x10*3/uL Absolute Nucleated RBC 0.000 (0.0-0.012) X10*3/uL Nucleated RBC % (auto) 0.0 (0.0-0.2) /100WBC Sodium 137 (135-145) mmol/L Potassium 3.4 (3.3-5.1) mmol/L Chloride 103 (96-108) mmol/L Carbon Dioxide 24 (22-29) mmol/L Anion Gap 13 (12-20) BUN 15 (9-16) mg/dL Creatinine 0.94 (0.5-1.4) mg/dL Estim Creat Clear Calc 92.4 Estimated GFR > 60 Random Glucose 132 H (60-115) mg/dL Calcium 9.2 (8.4-10.2) mg/dL Total Bilirubin 0.6 (0.0-1.0) mg/dL AST 22 (5-37) U/L ALT 24 (0-40) U/L Alkaline Phosphatase 53 (39-117) U/L Total Protein 7.3 (6.5-8.0) g/dL Albumin 4.2 (3.5-5.0) g/dL Lipase 26 (8-78) U/L Urine Color YELLOW Urine Appearance CLEAR Urine pH 6.0 (5.0-8.0) Ur Specific [place] 1.010 (1.005-1.025) Urine Protein NEG (NEG-TRACE) MG/DL Urine Glucose (UA) NEG (NEG) MG/DL Urine Ketones NEG (NEG) MG/DL Urine Blood NEG (NEG) Urine Nitrite NEG (NEG) Ur Leukocyte Esterase NEG (NEG) Discharge Plan Discharge Clinical Impression: Gastritis Patient Disposition: Home, Self-Care Instructions: Gastritis (ED) Prescriptions: New omeprazole magnesium [Prilosec OTC] 20 mg tablet,delayed release (DR/EC) 20 mg PO BID Qty: 30 0RF No Action amoxicillin-pot clavulanate [Augmentin] 875-125 mg tablet 1 tab PO BID 10 Days Qty: 20 0RF ondansetron 4 mg tablet,disintegrating 4 mg PO ONCE PRN (Reason: nausea and vomiting) Qty: 10 0RF Referrals: Boris Erazo MD [Physician] - 2 days
[2022-01-01 08:10] LABS: Appearance Urine CLEAR; Color Urine YELLOW; Glucose Urine UA NEG (NEG); Leukocyte Esterase Urine NEG (NEG); Nitrite Urine NEG (NEG); Urine Blood NEG (NEG); Urine Ketones NEG (NEG); Urine Protein NEG (NEG-TRACE)
[2022-01-01] MEDS: Magnesium Hydrox/Alum Hydrox 30 ML ORAL.SUSP PO (08:13)
[2022-01-01] MEDS: ondansetron HCL 4 MG/2 ML VIAL IVPUSH (08:14)
[2022-01-01 08:15] VITALS: BP 118/70; PULSE 50; RESP 16; O2SAT 97
[2022-01-01] MEDS: Famotidine/PF 20 MG/2 ML VIAL IVPUSH (08:15)
[2022-01-01] MEDS: Morphine Sulfate 2 MG/ML CARTRIDGE 1 MG IVPUSH (08:15)
== END 2022-01-01 09:52 | disposition home or self-care (01) ==
PROVIDERS: Emergency Provider Emergency Medicine
DX: K29.70 Gastritis, unspecified, without bleeding (principal); I10 Essential (primary) hypertension
CPT/HCPCS: 36415; 80053; 81003; 83690; 85025; 96374; 96375; 99284; J2270; J2405

== ENCOUNTER → 2022-01-12 10:33 | Outpatient (BNVA) | payer MEDICARE, MEDICAID, SELFPAY | PROVIDERS: PCP Student in an Organized Health Care Education/Training Program; Visit Provider Surgery | DX: K57.30 Diverticulosis of large intestine without perforation or abscess without bleeding (principal); Z87.19 Personal history of other diseases of the digestive system | CPT/HCPCS: 99202 ==

== ENCOUNTER 2023-11-15 10:04 | Outpatient (REF) | payer OTHER, SELFPAY ==
[2023-11-15 15:24] LABS: Alanine Aminotransferase 22 U/L (0-40); Albumin Level 4.5 g/dL (3.5-5.0); Alkaline Phosphatase 53 U/L (39-117); Anion Gap 15 (12-20); Aspartate Amino Transferase 22 U/L (5-37); Bilirubin Direct 0.3 mg/dL (0.0-0.5); Bilirubin Total 0.6 mg/dL (0.0-1.0); Blood Urea Nitrogen 23 mg/dL (9-16); Calcium 9.7 mg/dL (8.4-10.2); Carbon Dioxide 25 mmol/L (22-29); Chloride 100 mmol/L (96-108); Cholesterol 182 mg/dL (<200); Estimated Glomerular Filt Rate > 60; Glucose Fasting 94 mg/dL (60-99); HDL Cholesterol 55 mg/dL (>40); LDL Cholesterol Calculated 115 mg/dL (<100); Potassium 3.5 mmol/L (3.3-5.1); Sodium 136 mmol/L (135-145); Total Protein 7.9 g/dL (6.5-8.0); Triglycerides 63 mg/dL (<150)
[2023-11-16 08:16] LABS: ~HepC Num1 0.06 S/CO (0.00-0.79); ~Hepatitis C Antibody Nonreactive (Nonreactive)
[2023-11-17 17:18] LABS: HIV RNA PCR Qn Copies Not Detected Copies/mL; HIV RNA PCR Qn Log Copies Not Detected Log cps/mL
== END 2023-11-15 10:05 | disposition home or self-care (01) ==
LOC: HO.CHCLDS 10:04
PROVIDERS: Visit Provider Student in an Organized Health Care Education/Training Program
DX: Z00.00 Encounter for general adult medical examination without abnormal findings (principal); I10 Essential (primary) hypertension
CPT/HCPCS: 36415; 80048; 80061; 80076; 86803; 87536; 87900

== ENCOUNTER 2023-11-23 13:32 | Outpatient (REF) | payer OTHER, SELFPAY | END 2023-11-23 13:33 | disposition home or self-care (01) | LOC: HO.CHCLNP 13:32 | PROVIDERS: Visit Provider Student in an Organized Health Care Education/Training Program | DX: K21.9 Gastro-esophageal reflux disease without esophagitis (principal) | CPT/HCPCS: 87338 ==

== ENCOUNTER 2025-01-30 09:34 | Outpatient (REF) | payer OTHER, SELFPAY ==
--- OUTSIDE RECORDS SUMMARY | 2025-01-30 10:37 | XMS_ITS | Clinical Summary ---
Author Organization [employer] [facility] ity Address [address] [place] [address] Care Team Providers Care Concrete Conveyor Operator Name Role Phone Aretha Cabrera MD Primary Care Provider [phone] Immunizations Name Administration Dates Next Due Pfizer SARS-CoV-2 COVID-19, mRNA, LNP-S, preservative free 03/05/2021,02/12/2021 Surgical History Surgery Date Site/Laterality Comments KNEE SURGERY PROCEDURE:KNEE SURGERY SHOULDER SURGERY PROCEDURE:SHOULDER SURGERY PROSTATE SURGERY PROCEDURE:PROSTATE SURGERY Medical History Medical History Date Comments Asthma DX:Asthma Hypertension DX:Hypertension Family History Medical History Relation Name Comments Diabetes Brother Cancer Father Arthritis Mother Diabetes Mother Heart disease Mother Diabetes Sister Relation Name Status Comments Brother Father Mother Sister Social History Tobacco Use Types Packs/Day Years Used Date Smoking Tobacco: Never Smokeless Tobacco: Never Alcohol Use Standard Drinks/Week Comments No 0 (1 standard drink = 0.6 oz pur e alcohol) Sex and Gender Information Value Date Recorded Sex Assigned at Not on file Legal Sex Male 2:39 PM EST Gender Identity Not on file Sexual Orientation Not on file Obstetrics History Last Filed Vital Signs Vital Sign Reading Time Taken Comments Blood Pressure - - Pulse - - Temperature - - Respiratory Rate - - Oxygen Saturation - - Inhaled Oxygen Concentration - - Weight 89.4 kg (197 lb) 05/18/2024 7:06 PM EDT Height 170.2 cm (5' 7 ) 05/18/2024 7:06 PM EDT Body Mass Index 30.85 05/18/2024 7:06 PM EDT Plan of Treatment Health Maintenance Due Date Last Done Comments Zoster Vaccines (1 of 2) 2014 Pneumococcal Vaccine: 50+ Years (2 of 2 - PCV) 09/16/2016 09/16/2015 Pneumococcal Vaccine: Pediatrics (0 to 5 Years) and At-Risk Patients (6 to 64 Years) (2 of 2 - PCV) 09/16/2016 09/16/2015 Cholesterol Screening (Lipid Panel) 10/02/2022 Colorectal Cancer Screening: Colonoscopy 10/02/2022 Depression Screening 10/02/2022 HIV Screening 10/02/2022 Hepatitis C Screening 10/02/2022 Social Influencers of Health Screening 10/02/2022 COVID-19 Vaccine (3 - 2023-2 5 season) 2024 03/05/2021, 02/12/2021 RSV Immunization Adult Patients (1 - Risk 60-74 years 1-dose series) 2024 DTaP,Tdap,and Td Vaccines (2 - Td or Tdap) 12/04/2024 12/04/2014 Influenza Vaccine (Season Ended) 2025 07/22/2016, 09/10/2015, 09/08/2014 HIB Vaccines Aged Out No longer eligi ble based on patient's age to complete this topic HPV Vaccines Aged Out No longer eligi ble based on patient's age to complete this topic Hepatitis A Vaccines Aged Out No long er eligible based on patient's age to complete this topic Hepatitis B Vaccines Aged Out No long er eligible based on patient's age to complete this topic IPV Vaccines Aged Out No longer eligi ble based on patient's age to complete this topic MMR Vaccines Aged Out No longer eligi ble based on patient's age to complete this topic Meningococcal ACWY Vaccine Aged Out N o longer eligible based on patient's age to complete this topic Meningococcal B Vaccine Aged Out No l onger eligible based on patient's age to complete this topic RSV Immunization Patients Under 20 months Aged Out No longer eligible b ased on patient's age to complete this topic Varicella Vaccines Aged Out No longer eligible based on patient's age to complete this topic Care Teams Concrete Conveyor Operator Relationship Specialty Start Date End Date Aretha Cabrera MD [address] [place] [id number] PCP - General 09/27/22
--- OUTSIDE RECORDS SUMMARY | 2025-01-30 10:37 | XMS_ITS | Encounter Summary ---
Author Organization [employer] [facility] Address [address] 7[address] [place] [address] Care Team Providers Care Field Crop Harvest Worker Name Role Phone Aretha Cabrera MD Primary Care Provider [phone] Encounter Details Date Type Department Care Team (Late st Contact Info) Description 07/19/2023 Orders Only [facility] [address] [place], [place] [id number] Neeta Mahoney LPN Social History Tobacco Use Types Packs/Day Years Used Date Smoking Tobacco: Never Assessed Sex and Gender Information Value Date Recorded Sex Assigned at Male 08/22/2022 10:17 AM EDT Legal Sex Male 10:17 AM EDT Gender Identity Male 08/22/2022 10:17 AM EDT Sexual Orientation Straight 08/22/2022 10 :17 AM EDT documented as of this encounter Plan of Treatment Not on file documented as of this encounter Visit Diagnoses Not on filedocumented in this encounter Care Teams Field Crop Harvest Worker Relationship Specialty Start Date End Date Aretha Cabrera MD [address] [place] [address] PCP - General Family Medicine 07/13/18 documented as of this encounter
--- OUTSIDE RECORDS SUMMARY | 2025-01-30 10:37 | XMS_ITS | Encounter Summary ---
Author Organization [employer] Address [address] [place] [address] Care Team Providers Care Hollock Maker Name Role Phone Aretha Cabrera MD Primary Care Provider [phone] Reason for Visit * Reason Comments Med Refill Encounter Details Date Type Department Care Team ([facility] Contact Info) Description 09/27/2023 Refill [facility] MED & PEDS [address] [place] [address] Latanya Morton MD [address] [place] [address] Social History Tobacco Use Types Packs/Day Years Used Date Smoking Tobacco: Never Assessed Housing Stability Answer Date Recorded What is your housing situation today? I have saurabh hassan 08/15/[address] you li ve. Do you have problems with any of the following? None of the above 08/15/2023 Food Insecurity Answer Date Recorded Within the past 12 months, y ou worried that your food would run out before you got money to buy more: Never True 08/15/2023 Within the past 12 months,th e food you bought just didn't last and you didn't have enough money to get more: Never True Transportation Answer Date Recorded In the past 12 months, has l ack of transportation kept you from medical appts, meetings, work or from getting things needed for daily living? No 08/15/2023 Utilities Answer Date Recorded In the past 12 months, has t he electric, gas, oil or water company threatened to shut off services in your home? No 08/15/2023 Sex and Gender Information Value Date Recorded Sex Assigned at Male 08/22/2022 10:17 AM EDT Legal Sex Male 10:17 AM EDT Gender Identity Male 08/22/2022 10:17 AM EDT Sexual Orientation Straight 08/22/2022 10 :17 AM EDT documented as of this encounter Plan of Treatment Not on file documented as of this encounter Visit Diagnoses Not on filedocumented in this encounter Care Teams Hollock Maker Relationship Specialty Start Date End Date Aretha Cabrera MD [address] [place] [id number] PCP - General Family Medicine 07/13/18 documented as of this encounter
--- OUTSIDE RECORDS SUMMARY | 2025-01-30 10:37 | XMS_ITS | Clinical Summary ---
Author Organization [facility] Address [address] [place] [address] Care Team Providers Care Drafter Patent Name Role Phone Aretha Cabrera MD Primary Care Provider [phone] Allergies Active Allergy Reactions Criticality Noted Date Comments Banana Itching 05/14/2024 Segura Itching 05/14/2024 Kiwi Itching 05/14/2024 Seafood Nausea And Vomiting 05/14/2024 Medications Medication Sig Dispensed Refills Start Date End Date Status hydroCHLOROthiazide (HYDRODIURIL) tablet 25 mg Take 1 tablet (25 mg total) by mouth daily. 0 09/08/2022 Active pantoprazole (PROTONIX) 40 MG tablet Take 1 tablet (40 mg total) by mouth daily. 0 08/12/2022 Active meclizine (ANTIVERT) 25 MG tablet Take 1 tablet (25 mg total) by mouth 3 (three) times a day as needed for dizziness or nausea for up to 30 doses. 30 tablet 0 12/23/2023 Active albuterol 108 (90 Base) MCG/ACT inhaler Inhale 2 puffs into the lungs every 6 (six) hours as needed for wheezing. 1 each 0 05/14/2024 Active azithromycin (Zithromax Z-Shankar) 250 MG tablet Take 2 tablets together, the first day. Then one tablet daily for four more days. 6 tablet 0 05/14/2024 Active benzonatate (TESSALON) 200 MG capsule Take 1 capsule (200 mg total) by mouth 3 (three) times a day as needed for cough. 20 capsule 0 05/18/2024 Active Active Problems Problem Noted Date Diagnosed Date Right shoulder injury, initial encounter 018 Family History Medical History Relation Name Comments Diabetes Brother Cancer Father Arthritis Mother Diabetes Mother Heart disease Mother Diabetes Sister Relation Name Status Comments Brother Father Mother Sister Social History Tobacco Use Types Packs/Day Years Used Date Smoking Tobacco: Never Smokeless Tobacco: Never Tobacco Cessation:Counseling Given: Not Answered Alcohol Use Standard Drinks/Week Comments No 0 (1 standard drink = 0.6 oz pur e alcohol) Sex and Gender Information Value Date Recorded Sex Assigned at Male 09/27/2022 6:36 PM EST Gender Identity Not on file Sexual Orientation Not on file Job Start Date Occupation Industry Not on file Not on file Not on file Last Filed Vital Signs Vital Sign Reading Time Taken Comments Blood Pressure 130/67 05/18/2024 11:15 PM EDT Pulse 74 05/18/2024 11:15 PM EDT Temperature 36.4 ??C (97.5 ??F) 05/18/2024 11:15 PM E DT Respiratory Rate 18 05/18/2024 11:15 PM EDT Oxygen Saturation 96% 05/18/2024 11:15 PM EDT Inhaled Oxygen Concentration - - Weight 89.4 kg (197 lb) 05/18/2024 7:06 PM EDT Height 170.2 cm (5' 7 ) 05/18/2024 7:06 PM EDT Body Mass Index 30.85 05/18/2024 7:06 PM EDT Plan of Treatment Health Maintenance Due Date Last Done Comments Depression Screening 1976 Preventative Health Evaluation 1982 Colon Cancer Screening (Colonoscopy) 2009 Pneumococcal Vaccine (2 of 2 - PCV) 09/16/2016 09/16/2015, 02/19/2013, 02/11/2007 COVID-19 Vaccine (3 - 2023-2 5 season) 2024 03/05/2021, 02/12/2021 Influenza Vaccine (#1) 2024 6, 09/10/2015, 09/08/2014 RSV Adult > 60+ Yrs or (1 - Risk 60-74 years 1-dose series) 2024 DTap / Tdap / Td (3 - Td or Tdap) 12/18/2028 12/18/2018, 12/04/2014 Shingrix-Zoster Vaccine Completed 07/15/20 20, 11/29/2019 Hepatitis C Screening Completed 11/15/2023 Hepatitis B Vaccines Aged Out No long er eligible based on patient's age to complete this topic RSV Ped < 20 months Aged Out No longe r eligible based on patient's age to complete this topic Care Teams Drafter Patent Relationship Specialty Start Date End Date Aretha Cabrera MD [address] [place] [address] PCP - General Adult Medicine 09/27/22
--- OUTSIDE RECORDS SUMMARY | 2025-01-30 10:37 | XMS_ITS | Encounter Summary ---
Author Organization [employer] [facility] Address [address] 7[address] [place] [address] Care Team Providers Care Machine Shop Repair Technician Name Role Phone Aretha Cabrera MD Primary Care Provider [phone] Encounter Details Date Type Department Care Team (Latest Contact Info) Description 01/30/2025 Travel Social History Tobacco Use Types Packs/Day Years Used Date Smoking Tobacco: Never Smokeless Tobacco: Never Alcohol Use Standard Drinks/Week Comments Never 0 (1 standard drink = 0.6 oz pur e alcohol) Depression Answer Date Recorded Patient Health Questionnaire-9 Score 0 01/30/2025 Patient Health Questionnaire-9 Score 0 01/30/2025 Last PHQ-9: Questionnaire Data Not on file 0 01/30/2025 Housing Stability Answer Date Recorded What is your housing situation today? I have saurabh hassan 01/30/[address] you li ve. Do you have problems with any of the following? None of the above 01/30/2025 Food Insecurity Answer Date Recorded Within the past 12 months, y ou worried that your food would run out before you got money to buy more: Never True 01/30/2025 Within the past 12 months,th e food you bought just didn't last and you didn't have enough money to get more: Never True 07/2025 Transportation Answer Date Recorded In the past 12 months, has l ack of transportation kept you from medical appts, meetings, work or from getting things needed for daily living? No 01/30/2025 Utilities Answer Date Recorded In the past 12 months, has t he electric, gas, oil or water company threatened to shut off services in your home? No 01/30/2025 Depression Answer Date Recorded Patient Health Questionnaire-2 Score 0 01/30/2025 Internet Access Answer Date Recorded Internet Access Q1 Yes 01/30/2025 Internet Access Q2 Not on file 01/30/2025 Sex and Gender Information Value Date Recorded Sex Assigned at Male 08/22/2022 10:17 AM EDT Legal Sex Male 10:17 AM EDT Gender Identity Male 08/22/2022 10:17 AM EDT Sexual Orientation Straight 08/22/2022 10 :17 AM EDT documented as of this encounter Plan of Treatment Not on file documented as of this encounter Visit Diagnoses Not on filedocumented in this encounter Additional Health Concerns Assessment Noted Time PHQ-9 Depression Total Score: 0 01/31/20 25 9:12 AM EDT documented as of this encounter Care Teams Machine Shop Repair Technician Relationship Specialty Start Date End Date Aretha Cabrera MD [address] [place] [id number] PCP - General Family Medicine 07/13/18 documented as of this encounter
--- OUTSIDE RECORDS SUMMARY | 2025-01-30 10:37 | XMS_ITS ---
Author Name [facility] Organization Unknown Results Test Name/Text Value Interpretation Date Range Source Troponin I SerPl HS-mCnc 5ng/L Normal [id number] 0 - 20 [facility] Troponin I SerPl HS-mCnc 5ng/L Normal [id number] 0 - 20 [facility] BNP BLD MCNC 21pg/mL Normal [id number] 0 - 100 [facility] MAGNESIUM SERPL MCNC 2mg/dL Normal [id number] 1.7 - 2.8 [facility] CREAT SERPL MCNC 1mg/dL Normal [id number] 0.7 - 1.3 [facility] CALCIUM SERPL MCNC 8.9mg/dL Normal [id number] 8.4 - 10.2 [facility] SODIUM SERPL SCNC 138mmol/L Normal [id number] 135 - 145 [facility] ANION GAP SERPL SC[facility] 9mmol/L Normal [id number] 5 - 14 [facility] Glomerular filtration rate/1.73 sq M. predicted 87 Normal [id number] 60 - [facility] HCO3 SER SCNC 23mmol/L Below low normal [id number] 24 - 3 2 [facility] GLUCOSE SERPL MCNC 94mg/dL Normal [id number] 70 - 199 [facility] BUN SERPL MCNC 19mg/dL Normal [id number] 9 - 20 [facility] CHLORIDE SERPL SCNC 106mmol/L Normal [id number] 98 - 107 [facility] POTASSIUM SERPL SCNC 3.8mmol/L Normal [id number] 3.5 - 5.1 [facility] LACTATE SERPL SCNC 1.5mmol/L Normal 0.5 - 2 [facility] PT TIME PPP 11.5sec Normal 10.5 - 13.3 [facility] INR PPP 0.9 Normal [id number] 0.8 - 1.1 [facility] PLATELET NO. BLD AUTO 233K/uL Normal 150 - 450 [facility] RBC NO. BLD AUTO 4.28M/uL Below low normal 4.7 - 6 [facility] NUCLEATED RBC 0% Normal 0 - 1 [facility] LYMPHOCYTES NO. BLD AUTO 2.4K/uL Normal 1 - 3.2 [facility] EOSINOPHIL NO. BLD AUTO 0.4K/uL Normal 0 - 0.5 [facility] MCH RBC QN AUTO 31.3pg Normal 25 - 33 [facility] MCHC RBC AUTO MCNC 35.3g/dL Normal 32 - 36 [facility] MONOCYTES NFR BLD AUTO 9.3% Normal 2 - 12 [facility] IMMATURE GRANULOCYTE, ABSOLUTE 0.04k/uL Normal - 0.1 [facility] LYMPHOCYTES NFR BLD AUTO 34.2% Normal 20 - 48 [facility] EOSINOPHIL NFR BLD AUTO 5.9% Normal 0 - 6 [facility] HGB BLD MCNC 13.4g/dL Below low normal 13.5 - 18 [facility] NEUTROPHILS NO. BLD AUTO 3.5K/uL Normal 1.8 - 7.8 [facility] WBC NO. BLD AUTO 7.1K/uL Normal 4 - 10.5 [facility] BASOPHILS NFR BLD AUTO 0.6% Normal 0 - 2 [facility] MONOCYTES NO. BLD AUTO 0.7K/uL Normal 0 - 0.8 [facility] MCV RBC AUTO 88.8fL Normal 78 - 100 [facility] NEUTROPHILS NFR BLD AUTO 49.4% Normal 44 - 74 [facility] IMMATURE GRANULOCYTE, PERCENT 0.6% Normal 0 - 1 [facility] BASOPHILS IN BLOOD BY AUTOMATED COUNT 0K/uL Normal 0 - 0.2 [facility] PMV BLD AUTO 9.3fL Normal 7.4 - 11.4 [facility] RDW RBC AUTO RTO 13.2% Normal 12.1 - 17.7 [facility] HCT VFR BLD AUTO 38% Below low normal [id number] 40 - 54 [facility] BNP BLD MCNC 7pg/mL Normal [id number] 0 - 100 [facility] Service [facility] XXX-Imp Cepheid GeneXpert (RT-PCR) [facility] Normal [id number] [facility] FLUBV RNA Nph Ql ACACIA+non-probe NEGATIVE Normal [id number] [facility] RSV RNA Nph Ql ACACIA+non-probe NEGATIVE Normal [facility] FLUAV RNA Nph Ql ACACIA+non-probe NEGATIVE Normal [id number] [facility] CREAT SERPL MCNC 0.9mg/dL Normal [id number] 0.7 - 1.3 [facility] CALCIUM SERPL MCNC 9.5mg/dL Normal [id number] 8.4 - 10.2 [facility] SODIUM SERPL SCNC 136mmol/L Normal [id number] 135 - 145 [facility] ANION GAP SERPL SCNC 8mmol/L Normal [id number] 5 - 14 [facility] Glomerular filtration rate/1.73 sq M. predicted 98 Normal [id number] 60 - [facility] HCO3 SER SCNC 26mmol/L Normal [id number] 24 - 32 [facility] GLUCOSE SERPL MCNC 98mg/dL Normal [id number] 70 - 199 [facility] BUN SERPL MCNC 16mg/dL Normal [id number] 9 - 20 [facility] CHLORIDE SERPL SCNC 102mmol/L Normal [id number] 98 - 107 [facility] POTASSIUM SERPL SCNC 3.8mmol/L Normal [id number] 3.5 - 5.1 [facility] Troponin I SerPl HS-mCnc 3ng/L Normal [id number] 0 - 20 [facility] PLATELET NO. BLD AUTO 225K/uL Normal [id number] 150 - 450 [facility] RBC NO. BLD AUTO 4.62M/uL Below low normal [id number] 4.7 - 6 [facility] NUCLEATED RBC 0% Normal [id number] 0 - 1 [facility] LYMPHOCYTES NO. BLD AUTO 1.6K/uL Normal [id number] 1 - 3.2 [facility] EOSINOPHIL NO. BLD AUTO 0.1K/uL Normal [id number] 0 - 0.5 [facility] MCH RBC QN AUTO 31.2pg Normal 25 - 33 [facility] MCHC RBC AUTO MCNC 35.3g/dL Normal 32 - 36 [facility] MONOCYTES NFR BLD AUTO 10.5% Normal 2 - 12 [facility] IMMATURE GRANULOCYTE, ABSOLUTE 0.03k/uL Normal - 0.1 [facility] LYMPHOCYTES NFR BLD AUTO 23.6% Normal 20 - 48 [facility] EOSINOPHIL NFR BLD AUTO 1.9% Normal 0 - 6 [facility] HGB BLD MCNC 14.4g/dL Normal 13.5 - 18 [facility] NEUTROPHILS NO. BLD AUTO 4.3K/uL Normal 1.8 - 7.8 [facility] WBC NO. BLD AUTO 6.8K/uL Normal 4 - 10.5 [facility] BASOPHILS NFR BLD AUTO 0.6% Normal 0 - 2 [facility] MONOCYTES NO. BLD AUTO 0.7K/uL Normal 0 - 0.8 [facility] MCV RBC AUTO 88.3fL Normal 78 - 100 [facility] NEUTROPHILS NFR BLD AUTO 63% Normal 44 - 74 [facility] IMMATURE GRANULOCYTE, PERCENT 0.4% Normal 0 - 1 [facility] BASOPHILS IN BLOOD BY AUTOMATED COUNT 0K/uL Normal 0 - 0.2 [facility] PMV BLD AUTO 9.4fL Normal 7.4 - 11.4 [facility] RDW RBC AUTO RTO 13% Normal 12.1 - 17.7 [facility] HCT VFR BLD AUTO 40.8% Normal 40 - 54 [facility] SPECIMEN SOURCE XXX NASOPHARYNGEAL Normal [facility] Troponin I SerPl HS-mCnc 6ng/L Normal 0 - 20 [facility] Clarity Ur Refract.auto HAZY Normal [facility] Prot Ur Ql Strip.auto NEGATIVE Normal - [facility] Glucose Ur Ql Strip.auto NEGATIVE Normal - [facility] Nitrite Ur Ql Strip.auto NEGATIVE Normal - [facility] Hgb Ur Ql Strip.auto NEGATIVE Normal - [facility] Ketones Ur Ql Strip.auto NEGATIVE Normal - [facility] Leukocyte esterase Ur Ql Strip.auto NEGATIVE Normal - [facility] Sp Gr Ur Strip.auto 1.03 Normal 1.005 - 1.03 [facility] pH Ur Strip.auto 6 Normal 4.5 - 8 [facility] MAGNESIUM SERPL MCNC 2.1mg/dL Normal 1.7 - 2.8 [facility] LIPASE SERPL CCNC 18U/L Normal 11 - 82 [facility] CREAT SERPL MCNC 0.9mg/dL Normal 0.7 - 1.3 [facility] CALCIUM SERPL MCNC 9.2mg/dL Normal 8.4 - 10.2 [facility] SODIUM SERPL SCNC 139mmol/L Normal 135 - 145 [facility] ANION GAP SERPL SCNC 10mmol/L Normal 5 - 14 [facility] Glomerular filtration rate/1.73 sq M. predicted 98 Normal 60 - [facility] HCO3 SER SCNC 26mmol/L Normal 24 - 32 [facility] GLUCOSE SERPL MCNC 86mg/dL Normal 70 - 199 [facility] BUN SERPL MCNC 17mg/dL Normal 9 - 20 [facility] CHLORIDE SERPL SCNC 103mmol/L Normal 98 - 107 [facility] POTASSIUM SERPL SCNC 3.6mmol/L Normal [id number] 3.5 - 5.1 [facility] LDH SERPL L TO P CCNC 187U/L Normal 125 - 220 [facility] AST SERPL [facility] 22U/L Normal 5 - 40 [facility] ALP SERPL-CCNC 46U/L Normal [id number] 34 - 104 [facility] ALT SERPL [facility] 18U/L Normal 7 - 52 [facility] BILIRUB SERPL MCNC 0.4mg/dL Normal 0.3 - 1 [facility] BILIRUB DIRECT SERPL MCNC 0.1mg/dL Normal 0 - 0.2 [facility] AMYLASE SERPL CCNC 74U/L Normal 29 - 103 [facility] TSH SerPl DL<=0.005 mIU/L-aCnc 2.14uIU/mL Normal [id number] 0.45 - 5.33 [facility] Troponin I SerPl HS-mCnc 6ng/L Normal [id number] 0 - 20 [facility] PLATELET NO. BLD AUTO 228K/uL Normal 150 - 450 [facility] RBC NO. BLD AUTO 4.64M/uL Below low normal 4.7 - 6 [facility] NUCLEATED RBC 0% Normal 0 - 1 [facility] LYMPHOCYTES NO. BLD AUTO 2.3K/uL Normal 1 - 3.2 [facility] EOSINOPHIL NO. BLD AUTO 0.1K/uL Normal 0 - 0.5 [facility] MCH RBC QN AUTO 30.8pg Normal 25 - 33 [facility] MCHC RBC AUTO MCNC 35g/dL Normal 32 - 36 [facility] MONOCYTES NFR BLD AUTO 9.1% Normal 2 - 12 [facility] IMMATURE GRANULOCYTE, ABSOLUTE 0.02k/uL Normal [id number] - 0.1 [facility] LYMPHOCYTES NFR BLD AUTO 39.1% Normal 20 - 48 [facility] EOSINOPHIL NFR BLD AUTO 2.2% Normal 0 - 6 [facility] HGB BLD MCNC 14.3g/dL Normal 13.5 - 18 [facility] NEUTROPHILS NO. BLD AUTO 2.8K/uL Normal 1.8 - 7.8 [facility] WBC NO. BLD AUTO 5.8K/uL Normal 4 - 10.5 [facility] BASOPHILS NFR BLD AUTO 0.5% Normal 0 - 2 [facility] MONOCYTES NO. BLD AUTO 0.5K/uL Normal 0 - 0.8 [facility] MCV RBC AUTO 87.9fL Normal [id number] 78 - 100 [facility] NEUTROPHILS NFR BLD AUTO 48.8% Normal 44 - 74 [facility] IMMATURE GRANULOCYTE, PERCENT 0.3% Normal 0 - 1 [facility] BASOPHILS IN BLOOD BY AUTOMATED COUNT 0K/uL Normal 0 - 0.2 [facility] PMV BLD AUTO 9.5fL Normal 7.4 - 11.4 [facility] RDW RBC AUTO RTO 12.4% Normal 12.1 - 17.7 [facility] HCT VFR BLD AUTO 40.8% Normal 40 - 54 [facility] SPECIMEN SOURCE XXX URINE CLEAN CATCH Normal [id number] [facility] History of Medication Use Medication Directions Dispensed Refills Start Date End Date Status albuterol (PROVENTIL) (2.5 MG/3ML) 0.083% nebulizer solution Starting on 05/18/24 at 2108, For 1 doseJaden Loya: cabinet override 2 05/19/20 24 completed albuterol 108 (90 Base) MCG/ACT inhaler Inhale 2 puffs into the lungs every 6 (six) hours as needed for wheezing. 2 05/14/20 24 active methylPREDNISolone sodium succinate (SOLU-Medrol) injection 125 mg 125 mg, Intravenous, Once, On 05/18/24 at 1945, For 1 doseAdminister over 2-3 minutes 4 05/18/20 24 completed benzonatate (TESSALON) 200 MG capsule Take 1 capsule (200 mg total) by mouth 3 (three) times a day as needed for cough. 4 active pantoprazole (PROTONIX) 40 MG tablet Take 1 tablet (40 mg total) by mouth daily. 2 active magnesium sulfate 2 g/50ml IVPB Premix 2 g, Intravenous, at 50 mL/hr, Once, On 05/18/24 at 1945, For 1 dose 4 05/19/20 24 completed Problems Problem Status Onset Date Problem Type Date of Resolution Source Right shoulder injury, initial encounter active 2018-01-17 ProblemAct [facility] Asthma exacerbation active EncounterDiagnosisAc t [facility] Encounters Encounter Type Encounter Reason Primary Diagnosis Location Date Emergency Unspecified asthma with (acute) exacerbation Unspecified asthma with (acute) exacerbation [facility] 05/18/2024 Emergency Bronchitis, not specified as acute or chronic Bronchitis, not specified as acute or chronic [facility] 05/14/2024 Emergency Dizziness and giddiness Dizziness and giddiness [facility] 12/23/2023 Care Team Organization Name Specialty Phone Email Start Date End Da te [facility] 05/14/2024 [facility] 0 12/23/2023 [facility] Primary Care 2023
--- OUTSIDE RECORDS SUMMARY | 2025-01-30 10:38 | XMS_ITS | Encounter Summary ---
Author Organization [employer] Address [address] [place] [address] Care Team Providers Care Diving Board Assembler Name Role Phone Aretha Cabrera MD Primary Care Provider [phone] Reason for Visit * Reason Comments Med Refill Encounter Details Date Type Department Care Team ([facility] Contact Info) Description 03/20/2024 Refill [facility] MED & PEDS [address] [place] [address] Aretha Cabrera MD [address] [place] [address] Social History Tobacco Use Types Packs/Day Years Used Date Smoking Tobacco: Never Smokeless Tobacco: Never Alcohol Use Standard Drinks/Week Comments Never 0 (1 standard drink = 0.6 oz pur e alcohol) Depression Answer Date Recorded Patient Health Questionnaire-9 Score 0 11/15/2023 Patient Health Questionnaire-9 Score 0 11/15/2023 Last PHQ-9: Questionnaire Data Not on file 0 11/15/2023 Housing Stability Answer Date Recorded What is your housing situation today? I have saurabh hassan 10/03/[address] you li ve. Do you have problems with any of the following? None of the above 10/03/2023 Food Insecurity Answer Date Recorded Within the past 12 months, y ou worried that your food would run out before you got money to buy more: Never True 10/03/2023 Within the past 12 months,th e food you bought just didn't last and you didn't have enough money to get more: Never True 09/2023 Transportation Answer Date Recorded In the past 12 months, has l ack of transportation kept you from medical appts, meetings, work or from getting things needed for daily living? No 10/03/2023 Utilities Answer Date Recorded In the past 12 months, has t he electric, gas, oil or water company threatened to shut off services in your home? Yes 11/07/2023 Depression Answer Date Recorded Patient Health Questionnaire-2 Score 0 11/15/2023 Sex and Gender Information Value Date Recorded [...] Noted Time PHQ-9 Depression Total Score: 0 11/15/19 24 9:34 AM EST documented as of this encounter Care Teams Diving Board Assembler Relationship Specialty Start Date End Date Aretha Cabrera MD [address] [place] [id number] PCP - General Family Medicine 07/13/18 documented as of this encounter
--- OUTSIDE RECORDS SUMMARY | 2025-01-30 10:38 | XMS_ITS | Encounter Summary ---
Author Organization [facility] Address [address] [place] [address] Care Team Providers Care Ammonia Refrigeration Worker Name Role Phone Aretha Cabrera MD Primary Care Provider [phone] Encounter Details Date Type Department Care Team (Late st Contact Info) Description 06/12/2024 Orders Only [facility] [address] [place] [address] Provider, MD Luan Social History Tobacco Use Types Packs/Day Years [...] t he electric, gas, oil or water [employer] threatened to shut off services in your home? Yes 11/07/2023 Depression Answer Date Recorded Patient Health Questionnaire-2 Score 0 11/15/2023 Sex and Gender Information Value Date Recorded Sex Assigned at Male 08/22/2022 10:17 AM EDT Legal Sex Male 10:17 AM EDT Gender Identity Male 08/22/2022 10:17 AM EDT Sexual Orientation Straight 08/22/2022 10 :17 AM EDT documented as of this encounter Miscellaneous Notes * Result Encounter Note - Aretha Cabrera MD - 06/12/2024 2:05 PM EDT colonoscopy documented in this encounter Plan of Treatment Not on file documented as of this encounter Procedures Procedure Name Priority Date/Time Associated Diagnosis Comments COLONOSCOPY Routine 05/30/2024 2:05 PM EDT documented in this encounter Results * Colonoscopy (05/30/2024 2:05 PM EDT) Anatomical Region Laterality Modality Endoscopy us Historical Provider ENDOSCOPY PROCEDURE ORDER LANETTE Final Result documented in this encounter Visit Diagnoses Not on filedocumented in this encounter Additional Health Concerns Assessment Noted Time PHQ-9 Depression Total Score: 0 11/15/19 24 9:34 AM EST documented as of this encounter Care Teams Ammonia Refrigeration Worker Relationship Specialty Start Date End Date Aretha Cabrera MD [address] [place] [id number] PCP - General Family Medicine 07/13/18 documented as of this encounter
--- OUTSIDE RECORDS SUMMARY | 2025-01-30 10:38 | XMS_ITS | Encounter Summary ---
Author Organization [facility] Address [address] [place] [address] [place] [address] Care Team Providers Care Retail Wireless Sales Consultant Name Role Phone Aretha Cabrera MD Primary Care Provider [phone] Reason for Referral * Consultation (Routine) - Pending Review Specialty Diagnoses / Procedures Referred By Dionna dias Referred To Contact Physical Therapy Diagnoses Chronic bilateral low back pain without sciatica Aretha Cabrera MD [address] [place] [address] Phone: tel: fax: Referral ID Status Reason Start Date Expiration Date Visits Requested Visits Authorized [id number] Pending Review Specialty Services Required 01/30/2025 01/30/2026 1 1 Reason for Visit * Reason Comments Adult care Encounter Details Date Type Department Care Team ([facility] Contact Info) Description 01/30/2025 9:00 AM EDT Office Visit [facility] [address] [place] [address] Aretha Cabrera MD [address] [place] [address] Primary hypertension (Primary Dx); Screen for STD (sexually transmitted disease); Chronic bilateral low back pain without sciatica; Encounter for annual wellness visit Social History Tobacco Use Types Packs/Day Years [...] AM EDT documented as of this encounter Last Filed Vital Signs Vital Sign Reading Time Taken Comments Blood Pressure 148/94 01/30/2025 9:11 AM EDT Pulse 78 01/30/2025 9:11 AM EDT Temperature 36.2 ??C (97.2 ??F) 01/30/2025 9:11 AM ED T Respiratory Rate 20 01/30/2025 9:11 AM EDT Oxygen Saturation 98% 01/30/2025 9:11 AM EDT Inhaled Oxygen Concentration - - Weight 86.5 kg (190 lb 9.6 oz) 01/30/2025 9:11 A M EDT Height 170.2 cm (5' 7 ) 01/30/2025 9:11 AM EDT Body Mass Index 29.85 01/30/2025 9:11 AM EDT documented in this encounter Progress Notes * Aretha Cabrera MD - 01/30/2025 9:00 AM EDT Subjective Patient ID: Karlos Tate is a 59 y.o. male who presents for Adult care. Hypertension This is a chronic problem. The current episode started more than 1 year ago. The problem is unchanged. The problem is controlled. Risk factors for coronary artery disease include family history, obesity and sedentary lifestyle. Past treatments include diuretics. The current treatment provides significant improvement. There are no compliance problems. Review of Systems Constitutional: Negative. Respiratory: Negative. Cardiovascular: Negative. Gastrointestinal: Negative. Genitourinary: Negative. Objective Physical Exam Constitutional: Appearance: Normal appearance. HENT: Head: Normocephalic and atraumatic. Right Ear: Tympanic membrane normal. Left Ear: Tympanic membrane normal. Mouth/Throat: Mouth: Mucous membranes are moist. Eyes: Pupils: Pupils are equal, round, and reactive to light. Cardiovascular: Rate and Rhythm: Normal rate and regular rhythm. Pulmonary: Effort: Pulmonary effort is normal. Breath sounds: Normal breath sounds. Abdominal: General: Abdomen is flat. Palpations: Abdomen is soft. Musculoskeletal: General: Normal range of motion. Cervical back: Normal range of motion. Lumbar back: No spasms or tenderness. Skin: General: Skin is warm. Neurological: Mental Status: He is alert. Assessment/Plan Diagnoses and all orders for this visit: Primary hypertension Comments: Stable No changes in meds Maintain a low-sodium diet (less than 2 grams per day). Maintain a regular cardiovascular exercise program. Advised to maintain a low-fat, low-cholesterol diet. Counseled regarding importance of weight loss. Counseled re: potential co-morbidities including cardiovascular disease. Orders: - Basic Metabolic Panel; Future - Lipid Panel, Standard; Future - Hepatic Function Panel; Future Screen for STD (sexually transmitted disease) Comments: Labs ordered today Orders: - Hepatitis C Antibody with Reflex to HCV, RNA, Quantitative, Real-Time PCR; Future - HIV-1/2 Antigen and Antibodies, Fourth Generation, with Reflexes; Future Chronic bilateral low back pain without sciatica Comments: Started On short course of Flexeril Orders: - Referral to Physical Therapy; Future - cyclobenzaprine (Flexeril) 5 MG tablet; Take 1 tablet (5 mg) by mouth at bedtime for 10 days. Encounter for annual wellness visit Other orders - ibuprofen 800 MG tablet; Take 1 tablet (800 mg) by mouth 3 times daily. documented in this encounter Plan of Treatment Scheduled Orders Name Type Priority Associated Diagnoses Orde r Schedule Basic Metabolic Panel Lab Routine Primary hypertension Expected: 01/30/2025 (Approximate), Expires: 01/30/2026 Lipid Panel, Standard Lab Routine Primary hypertension Expected: 01/30/2025 (Approximate), Expires: 01/30/2026 Hepatic Function Panel Lab Routine Primary hypertension Expected: 01/30/2025 (Approximate), Expires: 01/30/2026 Hepatitis C Antibody with Reflex to HCV, RNA, Quantitative, Real-Time PCR Lab Routine Screen for STD (sexually transmitted disease) Expected: 01/30/2025, Expires: 01/30/2026 HIV-1/2 Antigen and Antibodies, Fourth Generation, with Reflexes Lab Routine Screen for STD (sexually transmitted disease) Expected: 01/30/2025 (Approximate), Expires: 01/30/2026 Scheduled Referrals Name Type Priority Associated Diagnoses Orde r Schedule Referral to Physical Therapy Outpatient Referral Routine Chronic bilateral low back pain without sciatica Expected: 01/30/2025 (Approximate), Expires: 01/30/2026 documented as of this encounter Visit Diagnoses Diagnosis Primary hypertension- Primary Unspecified essential hypertension Screen for STD (sexually transmitted disease) Screening examination for venereal disease Chronic bilateral low back pain without sciatica Encounter for annual wellness visit documented in this encounter Additional Health Concerns Assessment Noted Time PHQ-9 Depression Total Score: 0 01/31/20 25 9:12 AM EDT documented as of this encounter Care Teams Retail Wireless Sales Consultant Relationship Specialty Start Date End Date Aretha Cabrera MD [address] [place] [id number] PCP - General Family Medicine 07/13/18 documented as of this encounter
--- OUTSIDE RECORDS SUMMARY | 2025-01-30 10:38 | XMS_ITS | Clinical Summary ---
Author Organization [employer] [facility] Address [address] [place] [address] [address] [place] [address] Care Team Providers Care Emergency Room Orderly Name Role Phone Aretha Cabrera MD Primary Care Provider [phone] Allergies Active Allergy Reactions Criticality Noted Date Comments Apple Juice 05/23/2024 Other Reaction(s): throat itching Avocado Nausea 05/23/2024 Banana Itching 05/14/2024 Segura Itching 05/14/2024 Flavoring Agent (Non-Screening) Unknown 06/06/2023 Black Jtlkhm-Ebswgytaoc-E Quad 11/15/2023 Other reaction(s): itching Kiwi Extract Itching,Unknown 06/06/2023 Other 05/23/2024 Other Reaction(s): all fruits cause itching throat Shellfish Allergy 11/15/2023 Other reaction(s): all seafood - itching and swelling Tomato 05/23/2024 Other Reaction(s): throat itching Medications albuterol 108 (90 Base) MCG/ACT inhaler INHALE 2 PUFFS BY MOUTH EVERY 4 HOURS IF NEEDED FOR WHEEZING 8.5 g 3 03/19/20 24 Active meclizine (Antivert) 25 MG tablet 1 tab po BID 60 tablet 3 05/09/20 24 Active Myrbetriq 50 MG 24 hr tablet Take 1 tablet by mouth Once per day. Active cholecalcifer ol (D3-1000) 25 MCG (1000 UT) capsule TAKE 1 CAPSULE BY MOUTH EVERY DAY 90 capsule 3 09/04/20 24 Active hydroCHLOROth iazide (HYDRODiuril) 25 MG tablet TAKE 1 TABLET BY MOUTH 1 TIME 90 tablet 1 11/13/20 24 Active budesonide-fo rmoterol (Symbicort) 160-4.5 MCG/ACT inhaler Inhale 2 puffs in the morning and at bedtime. Rinse mouth with water after use to reduce aftertaste and incidence of candidiasis. Do not swallow. 6 g 3 09/04/20 24 Active omeprazole (PriLOSEC) [address] capsule Take 1 capsule (20 mg) by mouth 2 times daily. 60 capsule 11 09/04/20 Active meloxicam (Mobic) 7.5 MG tablet Take 1 tablet (7.5 mg) by mouth 2 times daily. 60 tablet 5 09/04/20 Active montelukast (Singulair) 10 MG tablet Take 1 tablet (10 mg) by mouth Once per day. 30 tablet 5 09/04/20 Active ipratropium-a lbuterol (Duo-Neb) 0.5-2.5 mg/3 mL nebulizer solution Take 3 mL by nebulization in the morning, at noon, and at bedtime. 180 mL 2 09/04/20 Active loratadine (Claritin) 10 MG tablet Take 1 tablet (10 mg) by mouth Once per day. 30 tablet 2 09/04/20 Active triamcinolone (Nasacort) 55 MCG/ACT nasal inhaler Administer 2 sprays into each nostril Once per day. 16.5 g 11 09/04/20 24 Active ibuprofen 800 MG tablet Take 1 tablet (800 mg) by mouth 3 times daily. 90 tablet 5 01/31/20 Active cyclobenzapri ne (Flexeril) 5 MG tabletIndicat ions:Chronic bilateral low back pain without sciatica Take 1 tablet (5 mg) by mouth at bedtime for 10 days. 10 tablet 01/31/20 25 Active ibuprofen 800 MG tablet Take 1 tablet (800 mg) by mouth 3 times daily. 90 tablet 5 09/04/20 025 Discontinued(R eorder (will not trigger notification to Pharmacy)) Active Problems Problem Noted Date Diagnosed Date RONNIE (obstructive sleep apnea) 11/15/2023 Asthma 07/04/2012 11/15/2023 Tubular adenoma 07/04/2003 11/15/2023 Encounters Date Type Department Care Team Description 01/30/2025 9:00 AM EDT Office Visit [facility] [address] [place] [address] Aretha Cabrera MD Primary hypertension (Primary Dx); Screen for STD (sexually transmitted disease); Chronic bilateral low back pain without sciatica; Encounter for annual wellness visit 01/30/2025 Travel 01/22/2025 Patient Outreach [facility] [address] [place] [address] Aretha Cabrera MD Pre-visit Planning (Pre visit planning LVM ) from Last 3 Months Immunizations Name Administration Dates Next Due Influenza injectable quadriv alent IIV4 with preservative 11/29/2019,07/13/2018 Influenza injectable quadriv alent preservative free 07/13/2022,07/15/2020 Influenza, IIV3, injectable 07/22/2016,1 11/10/2014,09/08/2014,07/09 Influenza, Split (incl. edis fied surface antigen) 07/12/2013,07/04/2012 Pneumococcal Polysaccharide PPSV23 09/16/2015,,02/11/2007 Tdap 12/18/2018,12/04/2014 Zoster, Recombinant 07/15/2020,11/29/2019 Social History Tobacco Use Types Packs/Day Years Used Date Smoking Tobacco: Never Smokeless Tobacco: Never Tobacco Cessation:Counseling Given: Not Answered Alcohol Use Standard Drinks/Week Comments Never 0 [...] Orientation Straight 08/22/2022 10 :17 AM EDT Last Filed Vital Signs Vital Sign Reading [...] Mass Index 29.85 01/30/2025 9:11 AM EDT Plan of Treatment Health Maintenance Due Date Last Done Comments CT Colonography 1964 FIT 1964 FOBT 1965 HIV Screening 1965 Sigmoidoscopy 1965 Pneumococcal Vaccine: 50+ Years (2 of 2 - PCV) 09/16/2016 09/16/2015, 02/19/2013, 02/11/2007 COVID-19 Vaccine ( season) 2024 03/05/2021, 02/12/2021 Influenza Vaccine (#1) 2024 2, 07/15/2020, 11/29/2019, Additional history exists RSV Patients and Patients Aged 60 years or older (1 - Risk 60-74 years 1-dose series) 2024 Tobacco Screening 03/27/2025 03/27/2024 Alcohol/Substance Use Screening 01/30/2026 01/30/2025 Depression Screening 01/30/2026 01/30/2025, 01/31/20 SDOH Screening 01/30/2026 01/30/2025 FIT DNA/Cologuard 04/19/2027 04/19/2024 Lipid Panel 11/15/2028 11/15/2023, 06/24, 12/07/2021, Additional history exists DTaP/Tdap/Td Vaccines (3 - Td or Tdap) 12/18/2028 12/18/2018, 12/04/2014 Colonoscopy 05/30/2029 05/30/2024 Colorectal Cancer Screening 05/30/2029 Zoster Vaccines Completed 07/15/2020, 11/29/2019 Hepatitis C Screening Completed 11/15/2023 HIB Vaccines Aged Out No longer eligi [...] patient's age to complete this topic Meningococcal Vaccine Aged Out No dre riley eligible based on patient's age to complete this topic RSV under 20 months Aged Out No longe r eligible based on patient's age to complete this topic Rotavirus Vaccines Aged Out No longer eligible based on patient's age to complete this topic Procedures Procedure Name Priority Date/Time Associated Diagnosis Comments COLONOSCOPY Routine 05/30/2024 2:05 PM EDT LAB COLOGUARD?? COLON CANCER SCREEN Routine 04/19/2024 6:46 AM EDT Encounter for screening for malignant neoplasm of colon HEPATITIS C AB W/REFL TO HCV RNA, QN, PCR Routine 11/15/2023 10:41 AM EST PE (physical exam), annual LIPID PANEL, STANDARD Routine 11/15/2023 10:41 AM EST Hypertension, unspecified type from Last 3 Months or Most Recently Relevant to Health Maintenance Results * Colonoscopy (05/30/2024 2:05 PM EDT) Anatomical Region Laterality Modality Endoscopy us Historical Provider ENDOSCOPY PROCEDURE ORDER LANETTE Final Result * Cologuard?? colon cancer screening (04/19/2024 6:46 AM EDT) Cologuard Result Negative Negative 04/25/20 1:22 AM EDT [facility] (CLIA #:[id number]) Comment: NEGATIVE TEST RESULT. A negative Cologuard result indicates a low likelihood that a colorectal cancer (CRC) or advanced adenoma (adenomatous polyps with more advanced pre-malignant features) ??is present. The chance that a person with a negative Cologuard test has a colorectal cancer is less than 1 in 1500 (negative predictive value >99.9%) or has an ??advanced adenoma is less than ??5.3% (negative predictive value 94.7%). These data are based on a prospective cross-sectional study of 10,000 individuals at average risk for colorectal cancer who were screened with both Cologuard and colonoscopy. (Finn Vazquez al, N Engl J Med 2014;370(14):1286- 1297) The normal value (reference range) for this assay is negative. COLOGUARD RE-SCREENING RECOMMENDATION: Periodic colorectal cancer screening is an important part of preventive healthcare for asymptomatic individuals at average risk for colorectal cancer. ??Following a negative Cologuard result, the [place] Cancer Society and U.S. Multi-Society Task Force screening guidelines recommend a Cologuard re-screening interval of 3 years. References: [place] [employer] Guideline for Colorectal Cancer Screening: https://www.cancer.org/cancer/rwblg-hpbzhl-zvlcps/rcojcrjoe-imnkhstht-npvakxf/ac s-rec ommendations.html.; Dmitri DK, Natan CR, Rosemary TianK, Colorectal Cancer Screening: Recommendations for Physicians and Patients from the U.S. Multi-Society Task Force on Colorectal Cancer Screening , Am J Gastroenterology 2017; 112:7406-1298. TEST DESCRIPTION: Composite algorithmic analysis of stool DNA-biomarkers with hemoglobin immunoassay. ?? Quantitative values of individual biomarkers are not reportable and are not associated with individual biomarker result reference ranges. Cologuard is intended for colorectal cancer screening of adults of either sex, 45 years or older, who are at average-risk for colorectal cancer (CRC). Cologuard has been approved for use by the U.S. FDA. The performance of Cologuard was established in a cross sectional study of average-risk adults aged 50-84. Cologuard performance in patients ages 45 to 49 years was estimated by sub-group analysis of near-age groups. Colonoscopies performed for a positive result may find as the most clinically significant lesion: colorectal cancer [4.0%], advanced adenoma (including sessile serrated polyps greater than or equal to 1cm diameter) [20%] or non- advanced adenoma [31%]; or no colorectal neoplasia [45%]. These estimates are derived from a prospective cross-sectional screening study of 10,000 individuals at average risk for colorectal cancer who were screened with both Cologuard and colonoscopy. (Finn Vazquez al, N Engl J Med 2014;370(14):5316-8091.) Cologuard may produce a false negative or false positive result (no colorectal cancer or precancerous polyp present at colonoscopy follow up). A negative Cologuard test result does not guarantee the absence of CRC or advanced adenoma (pre-cancer). The current Cologuard screening interval is every 3 years. ([place] [employer] Society and U.S. Multi-Society Task Force). Cologuard performance data in a 10,000 patient pivotal study using colonoscopy as the reference method can be accessed at the following location: www.[employer]results. Additional description of the Cologuard test process, warnings and precautions can be found at www.[employer] Stool specimen (specimen) 04/19/2024 6:46 AM EDT 04/20/2024 3:01 PM EDT Aretha Cabrera MD LAB MOLECULAR DIAGNOSTICS ORDERA BLES Final Result [facility] (CLIA #:[id number]) [place] [address], * Hepatitis C Antibody with Reflex to HCV, RNA, Quantitative, Real-Time PCR (11/15/2023 10:41 AM EST) Hepatitis C Antibody Nonreactive Nonreactive [facility] Comment:Antibodies to HCV no t detected; does not exclude early acuteHCV infection. Blood Venous blood specimen / Unknown 11/15/2023 10:41 AM EST 11/15/2023 2:55 PM EST Aretha Cabrera MD LAB BLOOD ORDERABLES Final Resul t Performing Organization Address City/[facility]/ZIP Co de Phone Number [facility] [address] [place] [phone] * (ABNORMAL) Lipid Panel, Standard (11/15/2023 10:41 AM EST) Triglycerides 63 <150 mg/dL [facility] Comment:Desirable Triglyceri de: less than 150 mg/dLBorderline High Triglyceride 150-199 mg/dLHigh Triglyceride: 200-499 mg/dLVery High Triglyceride: greater than or equal to 5OO mg/dL Cholesterol 182 <200 mg/dL [facility] Comment:Desirable Cholestero l: less than 200 mg/dLBorderline High Cholesterol: 200-239 mg/dLHigh Cholesterol: greater than 239 mg/dL LDL Cholesterol Calculated 115(H) <100 mg/dL [facility] Comment:Desirable LDL: less than 100 mg/dLNear Optimal/Above Optimal LDL: 110- 129 mg/dLBorderline High LDL: 130-159 mg/dLHigh LDL: 160-189 mg/dLVery High LDL: greater than or equal to 190 mg/dL HDL Cholesterol 55 >40 mg/dL [facility] Comment:Desirable HDL: great er than 40 mg/dL Note: This HDL assay may give artificially low results in patients with liver disease. Blood Venous blood specimen / Unknown 11/15/2023 10:41 AM EST 11/15/2023 2:55 PM EST us Aretha Cabrera MD LAB BLOOD ORDERABLES Final Resul t [facility] [address] [place] [address] [phone] from Last 3 Months or Most Recently Relevant to Health Maintenance [place] [address] [place] [address] CARE Member Subscriber Plan / Payer ( fective 2022-Present) Name:Karlos Tate A Relation to Subscriber:Self Name:Karlos Tate Payer ID:Not on file Group ID:[id number] Type:Not on file Address: [address] ONE CARE < 65 Care Teams Emergency Room Orderly Relationship Specialty Start Date End Date Aretha Cabrera MD [address] [place] [address] PCP - General Family Medicine 07/13/18
[2025-01-30 15:09] LABS: Alanine Aminotransferase 24 U/L (0-40); Albumin Level 4.5 g/dL (3.5-5.0); Anion Gap 12 (12-20); Aspartate Amino Transferase 27 U/L (5-37); Bilirubin Direct 0.2 mg/dL (0.0-0.5); Bilirubin Total 0.7 mg/dL (0.0-1.0); Blood Urea Nitrogen 11 mg/dL (9-16); Calcium 9.2 mg/dL (8.4-10.2); Carbon Dioxide 25 mmol/L (22-29); Chloride 107 mmol/L (96-108); Cholesterol 190 mg/dL (<200); Estimated Glomerular Filt Rate > 60; Glucose Random 90 mg/dL (60-115); HDL Cholesterol 44 mg/dL (>40); LDL Cholesterol Calculated 121 mg/dL (<100); Potassium 3.8 mmol/L (3.3-5.1); Sodium 140 mmol/L (135-145); Total Protein 7.9 g/dL (6.5-8.0); Triglycerides 125 mg/dL (<150)
[2025-01-30 15:13] LABS: Alkaline Phosphatase 61 U/L (39-117)
[2025-01-31 04:18] LABS: HIV AB/AG Nonreactive (Nonreactive); HIV Num 1 0.09 S/CO (0.00-0.99); ~HepC Num1 0.14 S/CO (0.00-0.79); ~Hepatitis C Antibody Nonreactive (Nonreactive)
== END 2025-01-30 09:35 | disposition home or self-care (01) ==
LOC: HO.CHCLDS 09:34
PROVIDERS: Visit Provider Student in an Organized Health Care Education/Training Program
DX: I10 Essential (primary) hypertension (principal); Z11.3 Encounter for screening for infections with a predominantly sexual mode of transmission
CPT/HCPCS: 36415; 80048; 80061; 80076; 86803; 87389